=== PATIENT | female | born 1970 | race American Indian/Alaskan Native ===

== ENCOUNTER 2016-05-15 20:45 | Inpatient (IN) | payer OTHER ==
[2016-05-15 21:44] LABS: Basophils % (Auto) 0.6 % (0.0-1.8); Eosinophils % (Auto) 1.7 % (0.0-4.3); Hematocrit 35.4 % (30.3-42.9); Hemoglobin 11.9 gm/dl (10.1-14.3); Mean Corpuscular HGB Conc 34 % (30-34); Mean Corpuscular Hemoglobin 28 pg (28-32); Mean Corpuscular Volume 84 fl (79-97); Platelet Count 276 K/mm3 (140-440); Red Blood Count 4.21 M/mm3 (3.65-5.03); Red Cell Distribution Width 13.3 % (13.2-15.2); White Blood Count 7.1 K/mm3 (4.5-11.0)
[2016-05-15 21:55] LABS: INR 0.97 (0.87-1.13)
[2016-05-15 21:56] LABS: Partial Thromboplastin Time 30.4 Sec. (24.2-36.6)
[2016-05-15 22:00] LABS: Anion Gap 15 mmol/L; BUN/Creatinine Ratio 15.71; Blood Urea Nitrogen 11 mg/dL (7-17); Calcium 8.7 mg/dL (8.4-10.2); Carbon Dioxide 26 mmol/L (22-30); Chloride 96.9 mmol/L (98-107); Glucose 251 mg/dL (65-100); Potassium 4.1 mmol/L (3.6-5.0); Sodium 134 mmol/L (137-145)
--- NOTE | 2016-05-16 00:48 | Emergency Department Report ---
HPI - General Chief Complaint: Headache Time Seen by Provider: 05/16/16 00:29 - HPI HPI: This is a 46-year-old [place] female presents the emergency department with complaint of a right-sided headache as well as some numbness to the right side of her body that started about 3 or 4 PM yesterday, Monday. She denies any slurred speech, vision change, chest pain, shortness of breath. She took some aspirin for her symptoms without much relief. Patient has a history of a CVA last year that left her with some right-sided deficits but that resolved. She also has a history of diabetes, hypertension. Primary care doctor is a Dr. Carlson. No recent travel or sick contacts at home. ED Past Medical Hx - Past Medical History Previous Medical History?: Yes Hx CVA: Yes Hx Diabetes: Yes - Surgical History Past Surgical History?: Yes Additional Surgical History: tubal, hysterectomy - Social History Smoking Status: Never Smoker Substance Use Type: None - Medications Home Medications: Home Medications Medication Instructions Recorded Confirmed Last Taken Type HYDROcodone/APAP 5-325 [[place] 1 each PO Q6HR PRN #14 tablet 07/18/13 Unknown Rx 5-325 mg TAB] Ibuprofen [Motrin] 800 mg PO Q8H PRN #20 tablet 07/18/13 Unknown Rx Cyclobenzaprine HCl [Flexeril 5mg] 5 mg PO DAILY #15 tablet 08/02/13 Unknown Rx Sulfamethoxazole/Trimethoprim 1 each PO BID #6 tablet 08/02/13 Unknown Rx [Bactrim Ds] traMADol [Ultram 50 MG tab] 50 mg PO Q6HR PRN #15 tablet 08/02/13 Unknown Rx ED Review of Systems ROS: Stated complaint: NUMBNESS LF SIDE Other details as noted in HPI Comment: All other systems reviewed and negative Constitutional: denies: chills, fever Eyes: denies: eye pain, eye discharge, vision change ENT: denies: ear pain, throat pain Respiratory: denies: cough, shortness of breath, wheezing Cardiovascular: denies: chest pain, palpitations Gastrointestinal: denies: abdominal pain, nausea, diarrhea Genitourinary: denies: urgency, dysuria, discharge Musculoskeletal: denies: back pain, joint swelling, arthralgia Skin: denies: rash, lesions Neurological: headache, numbness, paresthesias Physical Exam - Physical Exam Vital Signs: Vital Signs 05/15/16 05/15/16 20:58 23:53 Temperature 98.7 F 98.6 F Pulse Rate 103 H 101 H Respiratory 18 18 Rate Blood Pressure 181/108 152/91 O2 Sat by Pulse 100 100 Oximetry Physical Exam: GENERAL: The patient is well-developed well-nourished. HEENT: Normocephalic. Atraumatic. Extraocular motions are intact. Patient has moist mucous membranes. Pupils equal reactive to light bilaterally. Oropharynx is clear. Tongue is midline. There is some right-sided nasolabial fold paresis NECK: Supple. Trachea is midline. CHEST/LUNGS: Clear to auscultation. There is no respiratory distress noted. HEART/CARDIOVASCULAR: Regular. There is no tachycardia. There is no gallop rub or murmur. ABDOMEN: Abdomen is soft, nontender. Patient has normal bowel sounds. There is no abdominal distention. SKIN: Skin is warm and dry. NEURO: The patient is awake, alert, and oriented. The patient is cooperative. Patient has some subjective decreased sensation to the right upper and lower extremity when compared to the left. The patient has normal speech. Cranial nerves II through XII grossly intact. Right-sided nasal labial fold paresis. No pronator drift or dysmetria. MUSCULOSKELETAL: There is no tenderness or deformity. There is no limitation range of motion. There is no evidence of acute injury. Muscle strength 5 out of 5 for upper and lower extremity bilaterally. Cap refill less than 2 seconds. ED Course Vital Signs 05/15/16 05/15/16 20:58 23:53 Temperature 98.7 F 98.6 F Pulse Rate 103 H 101 H Respiratory 18 18 Rate Blood Pressure 181/108 152/91 O2 Sat by Pulse 100 100 Oximetry ED Medical Decision Making - Lab Data Result diagrams: 05/15/16 21:34 05/15/16 21:34 - EKG Data -: EKG Interpreted by Oh EKG shows normal: sinus rhythm, axis, intervals, QRS complexes, ST-T waves Rate: normal - EKG Data When compared to previous EKG there are: previous EKG unavailable Interpretation: normal EKG - Radiology Data Radiology results: report reviewed CT of the head does not show any acute process including no hemorrhage, mass, shift, diffuse edema or skull fracture. - Medical Decision Making 46-year-old female presents the emergency department with complaint of a headache and some right-sided numbness that started about 12 hours ago at this point. She has previous history of CVA. Physical exam the patient has some mild right-sided nasolabial fold paresis, subjective decreased sensation to the right side of the body. She is not in any window for TPA. CT does not show any bleed, shift, mass, ischemic changes or any acute process at this point. Patient's labs are mostly unremarkable. EKG does not show any signs of ST elevation MD or dysrhythmia. However due to the patient's complaints and physical examination, she will need admission and further evaluation including possible MRI and/or carotid ultrasounds. The patient has been accepted for admission by the hospitalist, Dr. Huggins. - Differential Diagnosis CVA, TIA, brain bleed, hypertensive urgency, hyperglycemia, DKA Critical Care Time: No Critical care attestation.: If time is entered above; I have spent that time in minutes in the direct care of this critically ill patient, excluding procedure time. ED Disposition Clinical Impression: Numbness on right side, Hyperglycemia Hypertension Qualifiers: Hypertension type: essential hypertension Qualified Code(s): I10 - Essential ( primary) hypertension Headache Qualifiers: Headache type: unspecified Headache chronicity pattern: acute headache Intractability: not intractable Qualified Code(s): R51 - Headache Disposition: OP ADMITTED IP TO THIS HOSP Is pt being admited?: Yes Does the pt Need Aspirin: Yes Condition: Stable Instructions: Hypertension (ED) Time of Disposition: 02:52
--- NOTE | 2016-05-16 01:48 | Cat Scan Report ---
FINAL REPORT PROCEDURE: CT HEAD/BRAIN WO CON TECHNIQUE: Computerized tomography of the head was performed without contrast material. HISTORY: NUMBNESS RT HAND AND FOOT COMPARISON: No prior studies are available for comparison. FINDINGS: Skull and scalp: Normal. Paranasal sinuses: Normal. Ventricles and subarachnoid spaces: Normal. Cerebrum: No evidence of hemorrhage, acute infarction or mass . Cerebellum and brainstem: No evidence of hemorrhage, acute infarction or mass. Vasculature: Normal. Comments: None. IMPRESSION: 1. Overall negative CT brain without contrast with no CT evidence of intracranial hemorrhage or edema or infarct or shift or distinct acute finding. 2. If there is continued concern for brain abnormality or unexplained symptoms additional diagnostic evaluation advised only if clinically indicated.
[2016-05-16] MEDS ORDERED: TYLENOL PR PRN (02:51)
[2016-05-16] MEDS ORDERED: BABY ASPIRIN PO ONE (02:52)
[2016-05-16] MEDS ORDERED: D50W (25GM) IV PRN (02:58)
[2016-05-16] MEDS ORDERED: NACL 0.9% 1000 ML 1,000 ML IV SCH (03:00)
--- NOTE | 2016-05-16 03:06 | History and Physical Report ---
History of Present Illness Date of examination: 05/16/16 Date of admission: 05/16/2016 Chief complaint: Chief complaint is numbness on the right side of the body, order complaint include facial drooling on the right side and headache History of present illness: History of present illness, patient is a 46-year-old female with past history of CVA, diabetes mellitus presenting with numbness on the right side of the body and patient had facial drooling on the right side with headaches. There is no history of chest pain, no history of shortness of breath, no nausea and vomiting and no history of fever. Patient also denied history of weakness on any of the limbs. There is no history of dysphagia, speech impairment or blurry vision. Past History Past Medical History: diabetes, stroke Past Surgical History: No surgical history Social history: lives with family Family history: no significant family history Medications and Allergies Allergies Allergy/AdvReac Type Severity Reaction Status Date / Time ciprofloxacin [From Cipro] Allergy Shortness Verified 07/18/13 09:26 of Breath ciprofloxacin HCl Allergy Shortness Verified 07/18/13 09:26 [From Cipro] of Breath Home Medications Medication Instructions Recorded Confirmed Last Taken Type HYDROcodone/APAP 5-325 [[place] 1 each PO Q6HR PRN #14 tablet 07/18/13 Unknown Rx 5-325 mg TAB] Ibuprofen [Motrin] 800 mg PO Q8H PRN #20 tablet 07/18/13 Unknown Rx Cyclobenzaprine HCl [Flexeril 5mg] 5 mg PO DAILY #15 tablet 08/02/13 Unknown Rx Sulfamethoxazole/Trimethoprim 1 each PO BID #6 tablet 08/02/13 Unknown Rx [Bactrim Ds] traMADol [Ultram 50 MG tab] 50 mg PO Q6HR PRN #15 tablet 08/02/13 Unknown Rx Review of Systems Constitutional: no weight loss, no weight gain, no fever, no chills, no sweats, no night sweats, no anorexia, no fatigue, no weakness, no malaise, no lethargy, no poor appetite, no daytime sleepiness Eyes: bilateral: other (NO BILATERAL EYE SYMPTOMS) Ears, nose, mouth and throat: no deferred, no ear pain, no ear discharge, no decreased hearing, no nose pain, no nasal congestion, no nasal discharge, no bleeding gums, no dental pain, no mouth pain, no dysphagia, no hoarseness, no sore throat, no swelling in mouth, no post-nasal drip, no headache, no vertigo, no pain front of neck, no neck fullness/pressure Breasts: deferred Cardiovascular: no chest pain, no orthopnea, no palpitations, no rapid/ irregular heart beat, no edema, no syncope, no lightheadedness, no shortness of breath, no paroxysmal nocturnal dyspnea, no claudication, no phlebitis, no high blood pressure, no decreased exercise tolerance Respiratory: no cough, no cough with sputum, no excessive sputum, no hemoptysis , no shortness of breath, no pleurisy, no pain, no pain on inspiration, no sleep apnea, no respiratory infections, no home oxygen Gastrointestinal: no abdominal pain, no nausea, no vomiting, no diarrhea, no constipation, no change in bowel habits, no hematemesis, no coffee ground emesis , no melena, no hematochezia, no loss of appetite, no early satiety, no dyspepsia/bloating, no early satiety Genitourinary Female: no dyspareunia, no flank pain, no menorrhagia, no stress incontinence, no post void dribbling, no incomplete emptying, no urge incontinence, no mixed incontinence, no difficulty voiding, no vaginal discharge , no vaginal odor, no abnormal vaginal bleeding, no genital sores, no vaginal dryness, no mood problems, no prolapse symptoms, no , no difficulties conceiving, no kidney stones Rectal: no pain, no incontinence, no itching, no hemorrhoids, no flatulence Musculoskeletal: no neck stiffness, no neck pain, no shooting arm pain, no arm numbness/tingling, no shooting leg pain, no leg numbness/tingling, no hot joints , no morning stiffness, no muscle weakness, no muscle cramps, no myalgias, no frequent falls, no fractures, no loss of height Integumentary: no rash, no pruritis, no redness, no sores, no wounds, no jaundice, no boils, no blisters, no growths, no bullae, no lesions, no darkening of skin, no depigmentation, no acne, no dryness, no color changes, no unusual bruising, no brittle nails, no striae, no hirsutism, no foot/leg ulcers , no onychomycosis Neurological: no head injury, no transient paralysis, no paralysis, no weakness , no parathesias, no numbness, no tingling, no seizures, no syncope, no tremors , no ataxia, no lack of coordination, no migraines, no convulsions, no aphasia, no change in speech, no change in mentation, no confusion, no memory loss, no changes in smell/taste, no balance difficulties, no gait dysfunction, no motor disturbance, no sensory deficit, no double vision, no loss of vision, no hearing difficulties, no burning pain, no paralysis, no spasticity Psychiatric: no anxiety, no memory loss, no change in sleep habits, no sleep disturbances, no insomnia, no hypersomnia, no change in appetite, no depression , no hopelessness, no anhedonia, no anxiety attacks, no difficulties concentrating Endocrine: no cold intolerance, no heat intolerance, no polyphagia, no excessive thirst, no polydipsia, no polyuria, no nocturia, no excessive sweating , no flushing, no thyroid mass, no palpatations, no high blood sugars, no low blood sugars Hematologic/Lymphatic: no easy bruising, no easy bleeding, no lymphadenopathy, no lymphedema, no thrombophilia, no other Allergic/Immunologic: no persistent infections, no anaphylaxis, no angioedema, no gluten intolerance, no seasonal allergies Exam - Constitutional Vitals: Temp Pulse Resp BP Pulse Ox 98.6 F 101 H 18 152/91 100 05/15/16 23:53 05/15/16 23:53 05/16/16 01:16 05/15/16 23:53 05/16/16 01:16 General appearance: Present: no acute distress - EENT Eyes: Present: PERRL, EOM intact ENT: hearing intact - Neck Neck: Present: supple, normal ROM. Absent: masses or JVD, carotid bruits - Respiratory Respiratory effort: normal - Cardiovascular Rhythm: regular Heart Sounds: Present: S1 & S2. Absent: gallop, systolic murmur, diastolic murmur, rub, click - Extremities Extremities: no ischemia, pulses intact Peripheral Pulses: within normal limits - Abdominal General gastrointestinal: Present: soft, non-tender, non-distended, rigid, normal bowel sounds. Absent: tender, distended Female genitourinary: Present: deferred - Rectal Rectal Exam: deferred - Integumentary Integumentary: Present: clear, warm, dry. Absent: erythema, jaundice, rash, clammy, normal turgor, decreased turgor - Musculoskeletal Musculoskeletal: strength equal bilaterally - Psychiatric Psychiatric: appropriate mood/affect Results - Labs CBC & Chem 7: 05/15/16 21:34 05/15/16 21:34 Labs: Laboratory Last Values WBC 7.1 K/mm3 (4.5-11.0) 05/15/16 21:34 RBC 4.21 M/mm3 (3.65-5.03) 05/15/16 21:34 Hgb 11.9 gm/dl (10.1-14.3) 05/15/16 21:34 Hct 35.4 % (30.3-42.9) 05/15/16 21:34 MCV 84 fl (79-97) 05/15/16 21:34 MCH 28 pg (28-32) 05/15/16 21:34 MCHC 34 % (30-34) 05/15/16 21:34 RDW 13.3 % (13.2-15.2) 05/15/16 21:34 Plt Count 276 K/mm3 (140-440) 05/15/16 21:34 Lymph % (Auto) 40.7 % (13.4-35.0) H 05/15/16 21:34 [place] % (Auto) 8.9 % (0.0-7.3) H 05/15/16 21:34 Eos % (Auto) 1.7 % (0.0-4.3) 05/15/16 21:34 Baso % (Auto) 0.6 % (0.0-1.8) 05/15/16 21:34 Lymph # 2.9 K/mm3 (1.2-5.4) 05/15/16 21:34 [place] # 0.6 K/mm3 (0.0-0.8) 05/15/16 21:34 Eos # 0.1 K/mm3 (0.0-0.4) 05/15/16 21:34 Baso # 0.0 K/mm3 (0.0-0.1) 05/15/16 21:34 Seg Neutrophils % 48.1 % (40.0-70.0) 05/15/16 21:34 Seg Neutrophils # 3.4 K/mm3 (1.8-7.7) 05/15/16 21:34 PT 12.8 Sec. (12.2-14.9) 05/15/16 21:34 INR 0.97 (0.87-1.13) 05/15/16 21:34 APTT 30.4 Sec. (24.2-36.6) 05/15/16 21:34 Thrombin Time 17.8 Sec. (15.1-19.6) 05/15/16 21:34 Sodium 134 mmol/L (137-145) L 05/15/16 21:34 Potassium 4.1 mmol/L (3.6-5.0) 05/15/16 21:34 Chloride 96.9 mmol/L (98-107) L 05/15/16 21:34 Carbon Dioxide 26 mmol/L (22-30) 05/15/16 21:34 Anion Gap 15 mmol/L 05/15/16 21:34 BUN 11 mg/dL (7-17) 05/15/16 21:34 Creatinine 0.7 mg/dL (0.7-1.2) 05/15/16 21:34 Estimated GFR > 60 ml/min 05/15/16 21:34 BUN/Creatinine Ratio 15.71 % 05/15/16 21:34 Glucose 251 mg/dL (65-100) H 05/15/16 21:34 Calcium 8.7 mg/dL (8.4-10.2) 05/15/16 21:34 Troponin T < 0.010 ng/mL (0.00-0.029) 05/15/16 21:34 Assessment and Plan - Patient Problems (1) Headache Current Visit: Yes Status: Acute Qualifiers: Headache type: unspecified Headache chronicity pattern: acute headache Intractability: not intractable Qualified Code(s): R51 - Headache (2) Numbness on right side Current Visit: Yes Status: Acute Plan to address problem: Patient will be admitted to medical surgical doe and will be on IV normal saline at 125 m an hour, patient will have MRI of the brain without contrast this morning will also have bilateral carotid Doppler this morning . Patient will have speech therapy and physical therapy consult evaluation and treatment and will also have neurology consult with Dr. Richmond. DVT prophylaxis will be to sequential compressive device and patient will remain nothing by mouth untill swallowing test is concluded. Patient will have Accu-Chek before meals and daily at bedtime followed by low-dose sliding scale using regular insulin subcutaneous when blood sugar is greater than 150 mg/dL. patient's home medications will be reconciled and applied accordingly
[2016-05-16] MEDS ORDERED: BABY ASPIRIN ONE (03:45)
[2016-05-16] MEDS ORDERED: NACL 0.9% 1000 ML 1,000 ML ONE (03:46)
--- NOTE | 2016-05-16 03:50 | Admit Criteria Form ---
Admission Criteria Documentation: NEUROLOGY GRG Clinical Indications for Admission to Inpatient Care (Place ' X' for any and all applicable criteria): Hospital admission is needed for appropriate care of the patient because of ANY ONE of the following: [ ]I. New-onset or worsening altered mental status remaining after emergency or observation level care (as appropriate) (9)(10)(11) [ ]II. Severe [employer] infections or inflammatory conditions, including ANY ONE of the following(1)(2)(3): [ ]a) Intracranial abscess [ ]b) Spinal abscess or myelitis [ ]c) Tuberculous or other nonbacterial, nonviral [employer] infection(8) [ ]III. Encephalitis(1)(2)(3) [ ]IV. Status epilepticus or repetitive seizures not controlled with emergent treatment [A] (7)(8) [ ]V. Transient alteration in consciousness with high-risk etiology; examples include (12)(13): [ ]a) Cardiovascular source [ ]b) Cataplexy [ ]. Cerebral aneurysm requiring ANY ONE of the following(14): [ ]a) IV antihypertensives or vasoactive agents [ ]b) Sedation and analgesia for suspected leak [ ]c) Need for external ventricular drainage and cerebral perfusion pressure monitoring [ ]d) Emergent evaluation to determine need for surgical clipping or endovascular coiling by interventional radiology. If surgery is required ( Also use Craniotomy, Supratentorial, for Surgery of Bleeding Intracranial Aneurysm (for bleeding aneurysm) or Craniotomy, Supratentorial (for nonbleeding aneurysm) as appropriate. [ ]VII. Altered mental status that is severe or persistent(16) [ ]VIII New-onset severe neurologic findings requiring inpatient care; examples include: [ ]a) Papilledema [ ]b) Cerebral edema [ ]c) Mass effect on imaging [X ]IX. New-onset severe neurologic symptom requiring inpatient care indicated by ANY ONE of the following: [ ]a) Aphasia(15) [ ]b) Weakness (grade 3 or less) [ ]c) Paralysis (eg, hemiplegia) [ ]d) Spasticity(16) [ ]e) Ataxia(17) [ ]f) Amnesia(18) [ ]g) Involuntary movements(19) [ ]h) Vertigo [X ]i) Other severe neurologic symptom not treatable at alternative level of care (eg, observation care) [ ]X. Guillain-[place] syndrome(20) [ ]XI. Myasthenia gravis crisis or inpatient monitoring need as indicated by ANY ONE of the following(21): [ ]a) Inadequate airway protection [ ]b) Respiratory insufficiency requiring intubation or inpatient. monitoring [ ]c) Progressive dysphagia with failure to thrive [ ]d) Intensive treatment (eg, course of plasmapheresis) with inadequate outpatient situation to monitor patients status [ ]XII. Multiple sclerosis or other acute demyelinating disease requiring inpatient care as indicated by ANY ONE of the following (22)(23): [ ]a) Acute severe deterioration requiring inpatient treatment (eg, IV steroids, plasmapheresis, close observation) [ ]b) Acute complication requiring inpatient care (eg, sepsis, severe decubitus, aspiration) [ ]XIII. Intracranial hypertension (eg, pseudotumor cerebri) requiring inpatient care (eg, acute visual loss, inadequate oral intake) (24) [ ]XIV.Parkinson disease requiring inpatient care (Also use Optimal Recovery Care Criteria or General Recovery Criteria as appropriate) indicated by ANY ONE of the following(25): [ ]a) Infection (eg, aspiration pneumonia) not treatable at alternative level of care [ ]b) Volume depletion not responsive to emergency and observation care treatment (as appropriate) [ ]c) Life-threatening agitation or psychotic behavior not treatable on emergency, observation care, or alternative level (eg, residential) basis [ ]d) Severe medication withdrawal effects (eg, freezing, neuroleptic malignant syndrome) not responsive to emergency and observation care treatment (as appropriate) [ ]e) Other severe manifestation not treatable at alternative level of care [ ]XV.Amyotrophic lateral sclerosis with inpatient care needs as indicated by ANY ONE of the following(26): [ ]a) Acute complications requiring inpatient care (Use Optimal Recovery Care Criteria or General Recovery Criteria as appropriate); examples include: [ ]i) Aspiration pneumonia [ ]ii) Sepsis [ ]b) Dehydration or hypovolemia (not responsive to emergency and observation care treatment as appropriate) AND artificial support desired [ ]c) Inadequate airway protection AND artificial support desired [ ]d) Severe ventilatory insufficiency AND artificial support desired [ ]XVI.Severe myopathy, neuropathy, or other neuromuscular disease as indicated by ANY ONE of the following: [ ]a) New-onset severe diffuse weakness (eg, strength 3/5 or less) [ ]b) Severe dysphagia [ ]c) Dyspnea at rest or with minimal exertion (new) [ ]d) Inadequate airway protection [ ]e) Inadequate ventilation as indicated by ANY ONE of the following : [ ]i) Partial pressure of carbon dioxide greater than 44 mm Hg (5.9 kPa) (new) [ ]ii) Reduced peak expiratory flow rate (new) [ ]iii) Vital capacity less than 50% of predicted ( less than 15 mL/kg) [ ]iv) Peak inspiratory force less negative than -30 cm H20 (-2942 Pa) [ ]XVII.Complications of congenital or degenerative disease (eg, infection, seizures, dehydration, injury) not responsive to emergency and observation care treatment (as appropriate ) [C](16)(29)(30) [ ]XVIII.Suspected or confirmed nerve or muscle toxic injury, including ANY ONE of the following: [ ]a) Rhabdomyolysis(31) [ ]b) Botulism(32) [ ]c) Other severe toxin-induced sign or symptom [ ]XIX. Neurologic trauma requiring inpatient treatment (medical) indicated by ANY ONE of the following(33)(34): [ ]a) Vital signs or neurologic signs more frequently than every 4 hours [ ]b) Hyperosmolar therapy [ ]c) Respiratory monitoring [ ]d) Intracranial pressure monitoring and treatment [ ]e) Stabilization and immobilization device placement (eg, braces, body jacket) [ ]f) Intubation & mechanical ventilation for airway protection or therapeutic hyperventilation [ ]g) Other treatment or monitoring needed that requires inpatient level of care [ ]XX.Complications of neurologic devices (eg, ventricular shunt, neurostimulator) requiring ANY ONE of the following(35)(36): [ ]a) IV antibiotics with monitoring while awaiting culture results [ ]b) Monitoring for hydrocephalus [ ]XXI Vasculitis with ANY ONE of the following(4)(5): [ ]a) Altered mental status [ ]b) Psychosis [ ]c) Seizures [ ]XXII. Neurology condition and ALL of the following: [ ]a) Symptom or finding for which emergency and observation care have failed or are not considered appropriate (Use General Criteria: Observation Care as appropriate) [ ]b) Presence of ANY ONE of the following: [ ]i) A General Admission Criteria [ ]ii A Pediatric General Admission Criteria The original [facility] content created by [facility] has been revised. The portions of the content which have been revised are identified through the use of italic text or in bold, and [facility] has neither reviewed nor approved the modified material. All other unmodified content is copyright [facility] Please see references footnoted in the original [facility] edition 2016 Admission Criteria Met: Yes
[2016-05-16] MEDS ORDERED: ATIVAN IV ONE (09:00)
[2016-05-16] MEDS ORDERED: TYLENOL PO PRN (09:00)
--- NOTE | 2016-05-16 10:22 | Magnetic Resonance Report ---
MRI BRAIN WITHOUT CONTRAST INDICATION: Numbness. COMPARISON: Head CT from earlier today. FINDINGS: Noncontrast multiplanar and multisequence MRI of the brain demonstrates normal ventricles and sulci without acute infarct, hemorrhage, mass effect or midline shift. Few small nonspecific white matter FLAIR and T2 weighted hyperintensities measuring up to 3-4 mm in the left frontal lobe, axial series 7, image 24. No abnormal extra-axial masses or fluid collections. Normal major intracranial vascular flow voids. Normal posterior fossa structures with symmetric seventh and eighth nerve complexes. Symmetric, grossly unremarkable eye globes. Mild right maxillary and slight ethmoid sinus mucosal thickening. Clear remainder imaged paranasal sinuses and mastoid air cells. Normal midline structures. Cerebellar tonsils extend approximately 1-2 mm below the foramen magnum, not strictly meeting Chiari 1 malformation criteria. Approximately 2.3 x 1.2 cm nasopharyngeal soft tissues may be directly visualized. CONCLUSION: No acute intracranial MRI abnormality with few incidental findings, as described. Thank you for the opportunity to participate in this patient's care.
--- NOTE | 2016-05-16 11:01 | Consultation ---
History of Present Illness Consult date: 05/16/16 Requesting physician: RITESH LOPEZ Reason for Consult: R facial numbness Chief complaint: r sided numbness/tingling History of present illness: 46 YO F Hx DM2 and prior stroke w/ residual R hemiparesis and hemisensory loss p /w R hemispheric RAMSEY and progressive numbness to the R face and hemibody similar to prior stroke reportedly. Sx lasted several hours and gradually improved. There are no clear aggravating, relieving or temporal factors. Severity was enough to cause her concern for recurrent stroke. Past History Past Medical History: diabetes, stroke Past Surgical History: No surgical history Social history: lives with family. denies: smoking, alcohol abuse, prescription drug abuse, IV drug use Family history: no significant family history Medications and Allergies Allergies Allergy/AdvReac Type Severity Reaction Status Date / Time ciprofloxacin [From Cipro] Allergy Shortness Verified 07/18/13 09:26 of Breath ciprofloxacin HCl Allergy Shortness Verified 07/18/13 09:26 [From Cipro] of Breath Home Medications Medication Instructions Recorded Confirmed Last Taken Type HYDROcodone/APAP 5-325 [[place] 1 each PO Q6HR PRN #14 tablet 07/18/13 Unknown Rx 5-325 mg TAB] Ibuprofen [Motrin] 800 mg PO Q8H PRN #20 tablet 07/18/13 Unknown Rx Cyclobenzaprine HCl [Flexeril 5mg] 5 mg PO DAILY #15 tablet 08/02/13 Unknown Rx Sulfamethoxazole/Trimethoprim 1 each PO BID #6 tablet 08/02/13 Unknown Rx [Bactrim Ds] traMADol [Ultram 50 MG tab] 50 mg PO Q6HR PRN #15 tablet 08/02/13 Unknown Rx Active Meds: Active Medications Acetaminophen (Tylenol) 650 mg TN Q4H PRN PRN Reason: Pain, Mild (1-3) Acetaminophen (Tylenol) 650 mg PO Q6H PRN PRN Reason: Pain, Mild (1-3) Last Admin: 05/16/16 10:01 Dose: 650 mg Dextrose (D50w (25gm)) 50 ml IV PRN PRN PRN Reason: Hypoglycemia Sodium Chloride (Nacl 0.9% 1000 Ml) 1,000 mls @ 125 mls/hr IV DIRECT SUREKHA Influenza Virus Vaccine Quadrival (Fluarix Quad [id number](36 Mos+)) 60 mcg IM .ONCE ONE Stop: 05/16/16 12:01 Insulin Human Regular (Novolin R) 0 units SUB-Q ACHS SUREKHA PRN Reason: Protocol Pneumococcal Polyvalent Vaccine (Pneumovax 23) 0.5 ml IM .ONCE ONE Stop: 05/16/16 12:01 Review of Systems Constitutional: fatigue, weakness Neurological: weakness, parathesias, numbness, tingling, headaches, balance difficulties, gait dysfunction, motor disturbance, sensory deficit Physical Examination - Vital Signs Vital Signs: Vital Signs Temp Pulse Resp BP Pulse Ox 98.7 F 103 H 18 181/108 100 05/15/16 20:58 05/15/16 20:58 05/15/16 20:58 05/15/16 20:58 05/15/16 20:58 - Constitutional General appearance: comfortable - EENT EENT: Present: ATNC, PERRL, mucous membranes moist, hearing intact, vision intact - Respiratory Respiratory: Present: chest non-tender, normal breath sounds, no respiratory distress - Cardiovascular Cardiovascular: Present: regular rate Extremities: Present: no peripheral edema bilatateraly, no clubbing, cyanosis, no inflammation, no ischemia or petechiae - Gastrointestinal Gastrointestinal: Present: normoactive bowel sounds, soft, non-distended - Integumentary Integumentary: Present: normal - Neurologic Cranial nerve examination: PERRL, EOMI, VFF, V1/V2/V3 grossly intact, face symmetric, tongue midline, intact, intact shoulder shrug, intact cough reflex, Intact Vestibulo-ocular r, intact corneal reflex, normal palatal elevation Speech examination: intact Sensorimotor examination: pronator drift (on R), hemiparesis (on R) Motor examination - right side: 4/5: biceps (4+ to 5-/5), triceps, wrist flexion , wrist extension, chemistry technician, hip flexors, knee extensors, dorsiflexion, toe extension (EHL), plantarflexion Motor examination - left side: 5/5: biceps, triceps, wrist flexion, wrist extension, chemistry technician, hip flexors, knee extensors, dorsiflexion, toe extension (EHL) , plantarflexion Detailed sensory examination: light touch (diminished on R), temperature ( diminished on R) Reflex and gait examination: intact Reflexes: 0: ankle, 1+: bicep, knee, 2+: tricep - Musculoskeletal Musculoskeletal: Present: no fluid collection, no pain, normal range of motion - Psychiatric Psychiatric: Present: mood/affect appropriate, cooperative Results - Laboratory Findings CBC and BMP: 05/15/16 21:34 05/15/16 21:34 Assessment and Plan 46 YO F Hx DM2 and prior stroke Tx PFH w/ residual R hemiparesis and hemisensory loss p/w R hemispheric RAMSEY and progressive numbness/tingling to the R hemibody lasting hours similar to prior stroke sx. Neuro exam w/ faint R fine motor weakness and decr sensation ? faintly exacerbated baseline deficit. MRI Brain nonacute. Clinical syn not consistent with TIA/stroke but more likely re- crudescence of prior stroke d/t toxic metabolic or vital sign irregularity. Recommendations: 1. Check serum TSH/Vit B12/Ammonia and correct as necessary 2. Cont Infectious work up/medical management for UTI, PNA, cellulitis, bacteremia, etc. 3. Avoid hyponatremia, hypo/hyper-calcemia, hypo/hyperglycemia, acidosis, hypoxia/hypoxemia, hypercarbia/hypercapnia 4. Avoid institution of any psychoactive medications (e.g. antihistamines, anticholinergics, BZD, hypnotics, opiates) as able unless low doses of low potency antipsychotic needed for behavioral issues complicating medical care 5. Autoregulate to goal BP normotensive 6. Cont home meds-there is no neurologic indication to change 7. We can revisit as needed.
[2016-05-16] MEDS ORDERED: PNEUMOVAX 23 IM ONE (12:00)
[2016-05-16] MEDS ORDERED: FLUARIX QUAD 2016-2017(36 MOS+) IM ONE (12:00)
--- NOTE | 2016-05-16 13:07 | Discharge Summary ---
Providers - Providers Date of Admission: 05/16/16 09:57 Date of discharge: 05/16/16 Attending physician: ISAEL CAMACHO Primary care physician: JENNIE MYERS MD Hospitalization Condition: Fair Disposition: DISCHARGED TO HOME OR SELFCARE - Discharge Diagnoses (1) Headache Status: Acute Qualifiers: Headache type: unspecified Headache chronicity pattern: acute headache Intractability: not intractable Qualified Code(s): R51 - Headache (2) Hypertension Status: Acute Qualifiers: Hypertension type: essential hypertension Qualified Code(s): I10 - Essential (primary) hypertension (3) Numbness on right side Status: Acute (4) TIA (transient ischemic attack) Status: Acute Qualifiers: Transient cerebral ischemia type: T Core Measure Documentation - Palliative Care Palliative Care/ Comfort Measures: Not Applicable Exam - Constitutional Vitals: Temp Pulse Resp BP Pulse Ox 98.2 F 98 H 20 159/95 100 05/16/16 04:50 05/16/16 06:04 05/16/16 04:50 05/16/16 04:50 05/16/16 08:39 Plan Activity: advance as tolerated Diet: low fat, low cholesterol, low salt Additional Instructions: 1.Follow up with PCP in 1 week Follow up with: PRIMARY MD LOUIS [Primary Care Provider] - 3-5 Days
[2016-05-16 16:23] VITALS: BP 137/82
--- NOTE | 2016-05-18 11:27 | Vascular Lab Report ---
CAROTID DUPLEX STUDY: RIGHT PSVEDV CCA PROX: 8717 CCA DIST: 8128 ICA PROX: 6425 ICA MID: 9240 ICA DIST: 8938 ECA: 8514 VERT: 64 26 LEFT PSVEDV CCA PROX:02078 CCA DIST: 9029 ICA PROX: 6724 ICA MID: 8740 ICA DIST: 9844 ECA: 8212 VERT: 57 19 REASON FOR EXAM: Facial droop. COMMENTS ON THE RIGHT: Doppler frequency analysis is consistent with 16 to 49 percent diameter reduction of the internal carotid artery. Minimal amount of plaque is seen. The common carotid artery is patent. The external carotid artery is patent. The vertebral artery has antegrade flow. COMMENTS ON THE LEFT: Doppler frequency analysis is consistent with 16 to 49 percent diameter reduction of the internal carotid artery. Minimal amount of plaque is seen. The common carotid artery is patent. The external carotid artery is patent. The vertebral artery has antegrade flow. IMPRESSION: Less than 50% diameter reduction in the internal carotid arteries bilaterally. Consider repeat carotid artery duplex in 12 months.
== END 2016-05-16 16:10 | disposition home or self-care (01) | DRG 69 ==
LOC: ED 20:45 → 4A 05-16 02:42 → OBSVTOIN 05-16 09:57
PROVIDERS: ADMIT Internal Medicine; ATTEND Internal Medicine
DX: G45.9 Transient cerebral ischemic attack, unspecified (principal); R51 Headache; E11.9 Type 2 diabetes mellitus without complications; Z86.73 Personal history of transient ischemic attack (TIA), and cerebral infarction without residual deficits; Z98.51 Tubal ligation status; Z90.710 Acquired absence of both cervix and uterus; Z88.8 Allergy status to other drugs, medicaments and biological substances
CPT/HCPCS: 36415; 70450; 70551; 80048; 84484; 85025; 85610; 85670; 85730; 90686; 90732; 93005; 93010; 93880; J7030

== ENCOUNTER 2016-08-15 19:58 | Emergency (ER) | payer SELFPAY ==
--- NOTE | 2016-08-16 00:02 | Emergency Department Report ---
ED Lower Extremity HPI - General Chief Complaint: Extremity Injury, Lower Stated Complaint: CAST REMOVAL Time Seen by Provider: 08/15/16 23:32 Source: patient, family Mode of arrival: Ambulatory Limitations: No Limitations - History of Present Illness Initial Comments: Patient here reported that she was sent by research and her orthopedic doctor to have cast removed. She said that she had the cast placed 2 weeks ago and she got it wet for she went today and they replaced it. Patient said that the cast became tight and she called her surgeon at about 3 PM and because they were closing and they told her to come to the emergency room to have cast removed from her left lower extremity and that they told her that she can wear her brace until she can be seen in a couple days for Replacement. Patient says she has plantar rupture to left foot and she was wearing a brace initially but orthopedic doctor thought he would be better to put a cast on to take the pressure off foot. She repaired pain 5 out of 10. She is taking pain medication. Denies any numbness or tingling to extremities. Denies any pain in her calf. MD Complaint: foot injury (cast removal) -: week(s) Injury: Foot: Left (pain from cast) Place: home Severity: moderate Severity scale (0 -10): 5 Improves With: NSAID, immobilization Worsens With: weight bearing, palpation Context: other (left plantar rupture) Associated Symptoms: unable to bear weight Treatments Prior to Arrival: NSAIDS, spinal immobilization (cast/crutches) - Related Data Home Medications Medication Instructions Recorded Confirmed Last Taken Aspirin EC [Aspirin Enteric Coated 325 mg PO QDAY 05/16/16 05/16/16 1 Day Ago TAB] Insulin Glargine [Lantus VIAL] 22 unit SUB-Q QHS 05/16/16 05/16/16 1 Day Ago Insulin Lispro [HumaLOG VIAL] 0 units SQ ACHS PRN 05/16/16 05/16/16 2 Weeks Ago Previous Rx's Medication Instructions Recorded Last Taken Type HYDROcodone/APAP 5-325 [[place] 1 each PO Q6HR PRN #14 tablet 07/18/13 1 Day Ago Rx 5-325 mg TAB] Ibuprofen [Motrin 800 MG tab] 800 mg PO Q8H PRN #20 tablet 07/18/13 1 Day Ago Rx Cyclobenzaprine HCl [Flexeril 5 MG 5 mg PO DAILY #15 tablet 08/02/13 1 Day Ago Rx TAB] Sulfamethoxazole/Trimethoprim 1 each PO BID #6 tablet 08/02/13 1 Day Ago Rx [Bactrim DS TAB] traMADol [Ultram 50 MG tab] 50 mg PO Q6HR PRN #15 tablet 08/02/13 1 Day Ago Rx Allergies Allergy/AdvReac Type Severity Reaction Status Date / Time ciprofloxacin [From Cipro] Allergy Shortness Verified 07/18/13 09:26 of Breath ciprofloxacin HCl Allergy Shortness Verified 07/18/13 09:26 [From Cipro] of Breath ED Review of Systems ROS: Stated complaint: CAST REMOVAL Other details as noted in HPI Comment: All other systems reviewed and negative Constitutional: denies: chills, fever Respiratory: no symptoms reported Cardiovascular: denies: chest pain, palpitations, edema, syncope Gastrointestinal: denies: nausea, vomiting Musculoskeletal: arthralgia. denies: back pain, joint swelling, myalgia Skin: denies: rash Neurological: abnormal gait (left foot.). denies: headache, weakness, numbness , paresthesias, confusion, vertigo ED Past Medical Hx - Past Medical History Previous Medical History?: Yes Hx CVA: Yes Hx Diabetes: Yes - Surgical History Past Surgical History?: Yes Additional Surgical History: tubal, hysterectomy. Plantar rupture - Family History Family history: hypertension - Social History Smoking Status: Never Smoker Substance Use Type: None - Medications Home Medications: Home Medications Medication Instructions Recorded Confirmed Last Taken Type HYDROcodone/APAP 5-325 [[place] 1 each PO Q6HR PRN #14 tablet 07/18/13 05/16/16 1 Day Ago Rx 5-325 mg TAB] Ibuprofen [Motrin 800 MG tab] 800 mg PO Q8H PRN #20 tablet 07/18/13 05/16/16 1 Day Ago Rx Cyclobenzaprine HCl [Flexeril 5 MG 5 mg PO DAILY #15 tablet 08/02/13 05/16/16 1 Day Ago Rx TAB] Sulfamethoxazole/Trimethoprim 1 each PO BID #6 tablet 08/02/13 05/16/16 1 Day Ago Rx [Bactrim DS TAB] traMADol [Ultram 50 MG tab] 50 mg PO Q6HR PRN #15 tablet 08/02/13 05/16/16 1 Day Ago Rx Aspirin EC [Aspirin Enteric Coated 325 mg PO QDAY 05/16/16 05/16/16 1 Day Ago History TAB] Insulin Glargine [Lantus VIAL] 22 unit SUB-Q QHS 05/16/16 05/16/16 1 Day Ago History Insulin Lispro [HumaLOG VIAL] 0 units SQ ACHS PRN 05/16/16 05/16/16 2 Weeks Ago History ED Physical Exam - General Limitations: No Limitations General appearance: alert, in no apparent distress - Head Head exam: Present: atraumatic, normocephalic, normal inspection - Neck Neck exam: Present: normal inspection, full ROM. Absent: tenderness, lymphadenopathy - Respiratory Respiratory exam: Present: normal lung sounds bilaterally. Absent: respiratory distress, chest wall tenderness - Cardiovascular Cardiovascular Exam: Present: regular rate, normal rhythm, normal heart sounds - Expanded Lower Extremity Exam Left Hip exam: Present: normal inspection, full ROM, pelvic stability. Absent: tenderness, swelling, abrasion, laceration, ecchymosis, deformity, crepidus, dislocation, erythema, external rotation, internal rotation, shortening Upper Leg exam: Present: normal inspection, full ROM. Absent: tenderness, swelling, abrasion, laceration, ecchymosis, deformity, crepidus, dislocation, erythema Knee exam: Present: normal inspection, full ROM, full knee extension. Absent: tenderness, swelling, abrasion, laceration, ecchymosis, deformity, crepidus, dislocation, erythema, effusion, pain w/ pronation/supination Lower Leg exam: Present: normal inspection, full ROM. Absent: tenderness, swelling, abrasion, laceration, ecchymosis, deformity, crepidus, dislocation, erythema, palpable cord, Dae's sign Ankle exam: Present: normal inspection, full ROM. Absent: tenderness, swelling , abrasion, laceration, ecchymosis, deformity, crepidus, dislocation, erythema Foot/Toe exam: Present: normal inspection, tenderness (plantar aspect of left foot). Absent: full ROM (left foot), swelling, abrasion, laceration, ecchymosis , deformity, crepidus, dislocation, erythema, amputation, puncture wound, foreign body, calcaneal tenderness, tenderness at base of 5th metatarsal, nail avulsion, subungual hematoma Neuro vascular tendon exam: Present: no vascular compromise, motor deficit ( Limited range of motion to left foot due to plantar rupture), significant pain with passive ROM of distal joint. Absent: pulse deficit, abnormal cap refill, sensory deficit, tendon deficit, extremity cold to touch, pallor, abnormal 2- point discrimination, decreased fine/light touch, foot drop, peroneal nerve deficit Gait: Positive: unable to bear weight - Back Exam Back exam: Present: normal inspection, full ROM. Absent: tenderness - Neurological Exam Neurological exam: Present: alert, oriented X3, abnormal gait (left foot due to plantar rupture), motor sensory deficit (left foot limited range of motion), reflexes normal - Psychiatric Psychiatric exam: Present: normal affect, normal mood - Skin Skin exam: Present: warm, dry, intact, normal color. Absent: rash ED Course Vital Signs 08/15/16 08/15/16 21:21 23:32 Temperature 98 F Pulse Rate 94 H 102 H Respiratory 16 18 Rate Blood Pressure 154/102 Blood Pressure 161/97 [Left] O2 Sat by Pulse 96 97 Oximetry Vital Signs 08/15/16 08/15/16 08/16/16 21:21 23:32 01:26 Temperature 98 F Pulse Rate 94 H 102 H 99 H Respiratory 16 18 18 Rate Blood Pressure 154/102 Blood Pressure 161/97 161/99 [Left] O2 Sat by Pulse 96 97 99 Oximetry - Reevaluation(s) Reevaluation #1: 08/16/16 01:30 Patient stable the procedure note for removal of splinter in - Procedure Description Procedures done: Cast removal: Patient cast removed from left lower extremity. She is neurovascular intact and brace placed the site. had her own brace that was given by orthopedic doctor. Pedal pulses are 2+ bilaterally. Patient has crutches and was told to follow-up with her orthopedic doctor to have cast replace as she was instructed. - Orthopedic Splinting/Casting Injury #1 Side: left Lower Extremity Injury Location: foot Other Orthopedic Equipment: crutches Additional Comments: Patient has foot brace that was placed to left foot until she can be seen by her own orthopedic doctor. ED Lower Extremity MDM - Medical Decision Making ED course: I spoke with Dr. Rivas regarding patient presentation and patient requests. I discussed with him that patient was then by orthopedic doctor to have her cast removed and temporary brace place until she can be seen by orthopedic doctor again. See procedure note for cast removal and splint in detail. Cast was removed successfully without any incident and patient discharged home with her family in stable condition. Critical care attestation.: If time is entered above; I have spent that time in minutes in the direct care of this critically ill patient, excluding procedure time. ED Disposition Clinical Impression: Arthralgia of left foot, Encounter for cast removal Disposition: DC-01 TO HOME OR SELFCARE Is pt being admited?: No Does the pt Need Aspirin: No Condition: Stable Instructions: Arthralgia (ED) Additional Instructions: Please call your orthopedic doctor tomorrow to schedule an appointment to have cast replaced. Please wear foot brace until you can be seen by orthopedic doctor Please do not weight-bear and remember to use crutches. Referrals: Your, ORTHOPEDIC DOCTOR [Other] - 08/17/16 Forms: Work/School Release Form(ED)
[2016-08-16 01:29] VITALS: BP 161/99
== END 2016-08-16 01:45 | disposition home or self-care (01) ==
LOC: ED 19:58
DX: Z46.89 Encounter for fitting and adjustment of other specified devices (principal); M79.672 Pain in left foot; E11.9 Type 2 diabetes mellitus without complications; Z88.1 Allergy status to other antibiotic agents; Z86.73 Personal history of transient ischemic attack (TIA), and cerebral infarction without residual deficits; Z79.82 Long term (current) use of aspirin; Z79.4 Long term (current) use of insulin
CPT/HCPCS: 99283

== ENCOUNTER 2016-08-21 18:35 | Emergency (ER) | payer SELFPAY ==
[2016-08-21 19:08] VITALS: BP 114/81
[2016-08-21 19:52] LABS: Hematocrit 35.7 % (30.3-42.9); Mean Corpuscular HGB Conc 34 % (30-34); Mean Corpuscular Hemoglobin 29 pg (28-32); Mean Corpuscular Volume 85 fl (79-97); Platelet Count 287 K/mm3 (140-440); Red Blood Count 4.18 M/mm3 (3.65-5.03); Red Cell Distribution Width 12.9 % (13.2-15.2)
[2016-08-21 19:54] LABS: Bacteria,Urine 1+ /HPF (Negative); Bilirubin,Urine NEG (Negative); Blood,Urine NEG (Negative); Ketones,Urine NEG (Negative); Leukocyte Esterase,Urine NEG (Negative); Mucus,Urine FEW /HPF; Nitrite,Urine NEG (Negative); Urobilinogen,Urine < 2.0 mg/dL (<2.0)
[2016-08-21 20:02] LABS: Anion Gap 16 mmol/L; BUN/Creatinine Ratio 24.54; Blood Urea Nitrogen 27 mg/dL (7-17); Calcium 8.6 mg/dL (8.4-10.2); Carbon Dioxide 27 mmol/L (22-30); Chloride 93.3 mmol/L (98-107); Glucose 372 mg/dL (65-100); Potassium 4.3 mmol/L (3.6-5.0); Sodium 132 mmol/L (137-145)
--- NOTE | 2016-08-22 10:47 | ED Elopement Review ---
ED Pt Elopement review - Results review Lab results: Laboratory Tests 08/21/16 08/21/16 08/21/16 19:22 19:22 19:38 WBC 6.0 RBC 4.18 Hgb 12.0 Hct 35.7 MCV 85 MCH 29 MCHC 34 RDW 12.9 L Plt Count 287 Sodium 132 L Potassium 4.3 Chloride 93.3 L Carbon Dioxide 27 Anion Gap 16 BUN 27 H Creatinine 1.1 Estimated GFR > 60 BUN/Creatinine Ratio 24.54 Glucose 372 H Calcium 8.6 Troponin T < 0.010 Urine Color Yellow Urine Turbidity Clear Urine pH 6.0 Ur Specific [place] 1.024 Urine Protein 100 mg/dl Urine Glucose (UA) >=500 Urine Ketones Neg Urine Blood Neg Urine Nitrite Neg Urine Bilirubin Neg Urine Urobilinogen < 2.0 Ur Leukocyte Esterase Neg Urine WBC (Auto) 1.0 Urine RBC (Auto) 6.0 U Epithel Cells (Auto) 2.0 Urine Bacteria (Auto) 1+ Urine Mucus Few - Call Back decision Pt Call Back Decision: No action required
== END 2016-08-21 21:30 | disposition left against medical advice (07) ==
LOC: ED 18:35
DX: R42 Dizziness and giddiness (principal); R11.0 Nausea; Z53.21 Procedure and treatment not carried out due to patient leaving prior to being seen by health care provider
CPT/HCPCS: 36415; 80048; 81001; 84484; 85027; 93005; 93010

== ENCOUNTER 2016-11-11 10:51 | Emergency (ER) | payer SELFPAY ==
[2016-11-11 11:22] VITALS: BP 142/99
== END 2016-11-11 11:15 | disposition left against medical advice (07) ==
LOC: ED 10:51
DX: Z53.21 Procedure and treatment not carried out due to patient leaving prior to being seen by health care provider (principal)

== ENCOUNTER 2017-09-24 09:36 | Emergency (ER) | payer SELFPAY ==
[2017-09-24] MEDS ORDERED: NACL 0.9% 1000 ML 1,000 ML ONE (11:05)
[2017-09-24 11:32] LABS: Basophils % (Auto) 0.7 % (0.0-1.8); Eosinophils # (Auto) 0.1 K/mm3 (0.0-0.4); Hematocrit 32.7 % (30.3-42.9); Lymphocytes # (Auto) 1.8 K/mm3 (1.2-5.4); Lymphocytes % (Auto) 27.5 % (13.4-35.0); Mean Corpuscular HGB Conc 34 % (30-34); Mean Corpuscular Hemoglobin 29 pg (28-32); Mean Corpuscular Volume 87 fl (79-97); Monocytes # (Auto) 0.4 K/mm3 (0.0-0.8); Monocytes % (Auto) 5.7 % (0.0-7.3); Platelet Count 340 K/mm3 (140-440); Red Blood Count 3.78 M/mm3 (3.65-5.03); Red Cell Distribution Width 14.1 % (13.2-15.2)
[2017-09-24 11:50] LABS: BUN/Creatinine Ratio 17; Blood Urea Nitrogen 15 mg/dL (7-17); Calcium 8.8 mg/dL (8.4-10.2); Hemolysis Index 2
[2017-09-24] MEDS ORDERED: NACL 0.9% 1000 ML 1,000 ML IV ONE (12:27)
[2017-09-24] MEDS ORDERED: HumuLIN R IV ONE (12:27)
--- NOTE | 2017-09-24 12:27 | Emergency Department Report ---
ED General Adult HPI - General Chief complaint: Hyperglycemia Stated complaint: DKA Time Seen by Provider: 09/24/17 11:41 Source: patient Mode of arrival: Ambulatory Limitations: No Limitations - History of Present Illness Initial comments: This is a 47-year-old female with a history of diabetes. She is concerned she might be in DKA. She found her sugar to be elevated yesterday. She complained of some nausea. She complained of urinary frequency but not dysuria. She has not been vomiting. She states that she has had a nonproductive cough for a month. She has not been recently seen by her physician. She denies fever or chills. -: Gradual, days(s) Associated Symptoms: denies other symptoms, cough, nausea/vomiting (no vomiting) - Related Data Home Medications Medication Instructions Recorded Confirmed Last Taken Aspirin EC [Aspirin Enteric Coated 325 mg PO QDAY 05/16/16 05/16/16 1 Day Ago TAB] ~05/15/16 Insulin Glargine [Lantus VIAL] 22 unit SUB-Q QHS 05/16/16 05/16/16 1 Day Ago ~05/15/16 Insulin Lispro [HumaLOG VIAL] 0 units SQ ACHS PRN 05/16/16 05/16/16 2 Weeks Ago ~05/02/16 Previous Rx's Medication Instructions Recorded Last Taken Type HYDROcodone/APAP 5-325 [[place] 1 each PO Q6HR PRN #14 tablet 07/18/13 1 Day Ago Rx 5-325 mg TAB] ~05/15/16 Ibuprofen [Motrin 800 MG tab] 800 mg PO Q8H PRN #20 tablet 07/18/13 1 Day Ago Rx ~05/15/16 Cyclobenzaprine HCl [Flexeril 5 MG 5 mg PO DAILY #15 tablet 08/02/13 1 Day Ago Rx TAB] ~05/15/16 Sulfamethoxazole/Trimethoprim 1 each PO BID #6 tablet 08/02/13 1 Day Ago Rx [Bactrim DS TAB] ~05/15/16 traMADol [Ultram 50 MG tab] 50 mg PO Q6HR PRN #15 tablet 08/02/13 1 Day Ago Rx ~05/15/16 Cefuroxime [Ceftin] 250 mg PO Q12H #14 tablet 09/24/17 Unknown Rx Allergies Allergy/AdvReac Type Severity Reaction Status Date / Time ciprofloxacin [From Cipro] Allergy Shortness Verified 07/18/13 09:26 of Breath ciprofloxacin HCl Allergy Shortness Verified 07/18/13 09:26 [From Cipro] of Breath ED Review of Systems ROS: Stated complaint: DKA Other details as noted in HPI Constitutional: denies: chills, fever Eyes: denies: eye pain, eye discharge, vision change ENT: denies: ear pain, throat pain Respiratory: cough. denies: shortness of breath, SOB with exertion, wheezing Cardiovascular: denies: chest pain, palpitations Endocrine: no symptoms reported Gastrointestinal: nausea. denies: abdominal pain, vomiting, diarrhea Genitourinary: denies: urgency, dysuria, discharge Musculoskeletal: denies: back pain, joint swelling, arthralgia Skin: denies: rash, lesions Neurological: denies: headache, weakness, paresthesias Psychiatric: denies: anxiety, depression Hematological/Lymphatic: denies: easy bleeding, easy bruising ED Past Medical Hx - Past Medical History Hx Hypertension: Yes Hx CVA: Yes (right-sided) Hx Diabetes: Yes - Surgical History Past Surgical History?: Yes Hx Appendectomy: No Hx Breast Surgery: No Additional Surgical History: tubal, hysterectomy. Plantar rupture - Social History Smoking Status: Never Smoker Substance Use Type: None - Medications Home Medications: Home Medications Medication Instructions Recorded Confirmed Last Taken Type HYDROcodone/APAP 5-325 [[place] 1 each PO Q6HR PRN #14 tablet 07/18/13 05/16/16 1 Day Ago Rx 5-325 mg TAB] ~05/15/16 Ibuprofen [Motrin 800 MG tab] 800 mg PO Q8H PRN #20 tablet 07/18/13 05/16/16 1 Day Ago Rx ~05/15/16 Cyclobenzaprine HCl [Flexeril 5 MG 5 mg PO DAILY #15 tablet 08/02/13 05/16/16 1 Day Ago Rx TAB] ~05/15/16 Sulfamethoxazole/Trimethoprim 1 each PO BID #6 tablet 08/02/13 05/16/16 1 Day Ago Rx [Bactrim DS TAB] ~05/15/16 traMADol [Ultram 50 MG tab] 50 mg PO Q6HR PRN #15 tablet 08/02/13 05/16/16 1 Day Ago Rx ~05/15/16 Aspirin EC [Aspirin Enteric Coated 325 mg PO QDAY 05/16/16 05/16/16 1 Day Ago History TAB] ~05/15/16 Insulin Glargine [Lantus VIAL] 22 unit SUB-Q QHS 05/16/16 05/16/16 1 Day Ago History ~05/15/16 Insulin Lispro [HumaLOG VIAL] 0 units SQ ACHS PRN 05/16/16 05/16/16 2 Weeks Ago History ~05/02/16 Cefuroxime [Ceftin] 250 mg PO Q12H #14 tablet 09/24/17 Unknown Rx ED Physical Exam - General Limitations: No Limitations General appearance: alert, in no apparent distress - Head Head exam: Present: atraumatic, normocephalic - Eye Eye exam: Present: normal appearance, PERRL, EOMI. Absent: scleral icterus - ENT ENT exam: Present: mucous membranes moist - Neck Neck exam: Present: normal inspection. Absent: tenderness, meningismus - Respiratory Respiratory exam: Present: normal lung sounds bilaterally. Absent: respiratory distress - Cardiovascular Cardiovascular Exam: Present: regular rate, normal rhythm. Absent: systolic murmur, diastolic murmur, rubs, gallop - GI/Abdominal GI/Abdominal exam: Present: soft, normal bowel sounds. Absent: distended, tenderness, guarding, rebound, rigid - Extremities Exam Extremities exam: Present: normal inspection - Back Exam Back exam: Present: normal inspection - Neurological Exam Neurological exam: Present: alert, oriented X3, CN II-XII intact. Absent: motor sensory deficit - Psychiatric Psychiatric exam: Present: normal affect, normal mood - Skin Skin exam: Present: warm, dry, intact, normal color. Absent: rash ED Course Vital Signs 09/24/17 09/24/17 09:45 11:21 Temperature 98.8 F Pulse Rate 102 H Respiratory 18 15 Rate Blood Pressure 144/86 O2 Sat by Pulse 100 100 Oximetry - Reevaluation(s) Reevaluation #1: Patient was given IV fluids, insulin, ceftriaxone. She was found to have a possible UTI. She was not in DKA. She was appropriate for outpatient follow- up. A urine culture will be ordered. She will be continued on Ceftin. 09/24/17 13:54 ED Medical Decision Making - Lab Data Result diagrams: 09/24/17 10:45 09/24/17 10:45 Laboratory Results - last 24 hr 09/24/17 09/24/17 09/24/17 09:46 10:45 10:45 WBC 6.4 RBC 3.78 Hgb 11.0 Hct 32.7 MCV 87 MCH 29 MCHC 34 RDW 14.1 Plt Count 340 Lymph % (Auto) 27.5 [place] % (Auto) 5.7 Eos % (Auto) 2.0 Baso % (Auto) 0.7 Lymph # 1.8 [place] # 0.4 Eos # 0.1 Baso # 0.0 Seg Neutrophils % 64.1 Seg Neutrophils # 4.1 VBG pH Sodium 132 L Potassium 4.5 Chloride 95.8 L Carbon Dioxide 26 Anion Gap 15 BUN 15 Creatinine 0.9 Estimated GFR > 60 BUN/Creatinine Ratio 17 Glucose 384 H POC Glucose 421 H Calcium 8.8 09/24/17 10:45 WBC RBC Hgb Hct MCV MCH MCHC RDW Plt Count Lymph % (Auto) [place] % (Auto) Eos % (Auto) Baso % (Auto) Lymph # [place] # Eos # Baso # Seg Neutrophils % Seg Neutrophils # VBG pH 7.348 Sodium Potassium Chloride Carbon Dioxide Anion Gap BUN Creatinine Estimated GFR BUN/Creatinine Ratio Glucose POC Glucose Calcium Critical Care Time: No Critical care attestation.: If time is entered above; I have spent that time in minutes in the direct care of this critically ill patient, excluding procedure time. ED Disposition Clinical Impression: Hyperglycemia due to type 2 diabetes mellitus Qualifiers: Diabetes mellitus long chain beamer insulin use: with long chain beamer use Qualified Code(s): E11.65 - Type 2 diabetes mellitus with hyperglycemia; Z79.4 - ad terminal makeup operator (current ) use of insulin UTI (urinary tract infection) Qualifiers: Urinary tract infection type: site unspecified Hematuria presence: without hematuria Qualified Code(s): N39.0 - Urinary tract infection, site not specified Disposition: DC-01 TO HOME OR SELFCARE Is pt being admited?: No Does the pt Need Aspirin: No Condition: Stable Instructions: Diabetes Mellitus Type 2 in Adults (ED), Urinary Tract Infection in Women (ED) Additional Instructions: Returns symptoms worsen. Use a sliding scale for your blood sugar. If it is not controlled he should return or see her primary care physician as soon as possible. The urine culture test needs to be checked in 2-3 days. Continue oral antibiotic. Return fever chills nausea vomiting or any acute change or problem. Prescriptions: Cefuroxime [Ceftin] 250 mg PO Q12H #14 tablet Referrals: PRIMARY CARE, [Primary Care Provider] - 2-3 Days [facility] [Provider Group] - 3-5 Days Time of Disposition: 13:57
--- NOTE | 2017-09-24 12:56 | XRay Report ---
FINAL REPORT EXAM: XR CHEST 1V AP HISTORY: cough TECHNIQUE: Frontal chest radiograph. PRIORS: None. FINDINGS: The cardiomediastinal silhouette is normal. No focal consolidation. No pleural effusion. No pneumothorax. No acute osseous abnormality. IMPRESSION: No acute cardiopulmonary process.
[2017-09-24 13:26] LABS: Bacteria,Urine 2+ /HPF (Negative); Bilirubin,Urine NEG (Negative); Blood,Urine NEG (Negative); Color,Urine Yellow (Yellow); Mucus,Urine FEW /HPF; Urobilinogen,Urine < 2.0 mg/dL (<2.0)
[2017-09-24 13:36] LABS: Protein,Urine >500 mg/dL (Negative)
[2017-09-24] MEDS ORDERED: ROCEPHIN/NS 1 GM/50 ML 1 GM/50 ML BAG IV ONE (13:51)
[2017-09-24 15:12] VITALS: BP 171/94
== END 2017-09-24 15:18 | disposition home or self-care (01) ==
LOC: ED 09:36
DX: E11.65 Type 2 diabetes mellitus with hyperglycemia (principal); N39.0 Urinary tract infection, site not specified; I10 Essential (primary) hypertension; Z79.4 Long term (current) use of insulin; Z86.73 Personal history of transient ischemic attack (TIA), and cerebral infarction without residual deficits; Z98.51 Tubal ligation status; Z90.710 Acquired absence of both cervix and uterus; Z88.1 Allergy status to other antibiotic agents
CPT/HCPCS: 36415; 71045; 80048; 81001; 82805; 82962; 85025; 96361; 96365; 96375; 99284; J0696; J7030; J1815

== ENCOUNTER 2018-10-23 17:02 | Emergency (ER) | payer SELFPAY ==
--- NOTE | 2018-10-23 17:36 | Event Note ---
ED Screening Note Date of service: 10/23/18 Time: 17:31 ED Screening Note: This is a 48 y.o. F. that presents to the ER with BLE swelling, 2 diabetic ulcers to right plantar foot, and a wound to right great toe nail bed. Patient reports BLE edema for 1 month. She is scheduled to have a echogram this with [place] news content specialist. Reports SOB, cough, and occasional palpitations. This initial assessment/diagnostic orders/clinical plan/treatment(s) is/are subject to change based on patients health status, clinical progression and re- assessment by fellow clinical providers in the ED. Further treatment and workup at subsequent clinical providers discretion. Patient/guardian urged not to elope from the ED as their condition may be serious if not clinically assessed and managed. Initial orders include: Labs and CXR
[2018-10-23 17:55] LABS: Basophils # (Auto) 0.1 K/mm3 (0.0-0.1); Basophils % (Auto) 0.9 % (0.0-1.8); Eosinophils # (Auto) 0.2 K/mm3 (0.0-0.4); Eosinophils % (Auto) 3.5 % (0.0-4.3); Hematocrit 28.6 % (30.3-42.9); Hemoglobin 9.4 gm/dl (10.1-14.3); Lymphocytes # (Auto) 2.2 K/mm3 (1.2-5.4); Lymphocytes % (Auto) 33.6 % (13.4-35.0); Mean Corpuscular HGB Conc 33 % (30-34); Mean Corpuscular Volume 86 fl (79-97); Monocytes # (Auto) 0.6 K/mm3 (0.0-0.8); Monocytes % (Auto) 8.5 % (0.0-7.3); Platelet Count 315 K/mm3 (140-440); Red Blood Count 3.34 M/mm3 (3.65-5.03); Red Cell Distribution Width 13.5 % (13.2-15.2)
[2018-10-23 18:07] LABS: Partial Thromboplastin Time 31.9 Sec. (24.2-36.6)
--- NOTE | 2018-10-23 18:29 | XRay Report ---
CHEST 2 VIEWS INDICATION / CLINICAL INFORMATION: SOB and BLE edema. COMPARISON: 09/24/17 FINDINGS: SUPPORT DEVICES: None. HEART / MEDIASTINUM: No significant abnormality. LUNGS / PLEURA: No significant pulmonary or pleural abnormality. No pneumothorax. ADDITIONAL FINDINGS: No significant additional findings. IMPRESSION: 1. No acute findings. No significant change. Signer Name: Mara Simmons MD Signed: 10/23/2018 6:25 PM Workstation Name: [id number]
[2018-10-23 18:41] LABS: Alanine Aminotransferase 9 units/L (7-56); Albumin 2.4 g/dL (3.9-5); BUN/Creatinine Ratio 15; Blood Urea Nitrogen 20 mg/dL (7-17); Calcium 8.5 mg/dL (8.4-10.2); Hemolysis Index 6
[2018-10-23] MEDS ORDERED: ASPIRIN PO ONE (19:57)
[2018-10-23] MEDS ORDERED: TYLENOL PO ONE (19:58)
[2018-10-23] MEDS ORDERED: IBUPROFEN PO ONE (19:58)
[2018-10-23] MEDS ORDERED: XYLOCAINE 1% MPF 5 mL INFILTRATI ONE (19:58)
[2018-10-23] MEDS ORDERED: LASIX PO ONE (19:58)
[2018-10-23] MEDS ORDERED: KEFLEX PO ONE (19:59)
[2018-10-23] MEDS ORDERED: TRIPLE ANTIBIOTIC TP ONE ×2 (22:59→23:02)
--- NOTE | 2018-10-23 23:13 | Emergency Department Report ---
ED General Adult HPI - General Chief complaint: Wound/Laceration Stated complaint: LEGS SWOLLEN/ULCERS ON R FOOT Time Seen by Provider: 10/23/18 17:31 Source: patient Mode of arrival: Ambulatory Limitations: No Limitations - History of Present Illness Initial comments: Patient is a 48-year-old -[place] female with a history of CHF, [id number] diabetes, and hypertension who presents to the ED with complaint of worsening right foot also pain and bilateral lower extremity swelling and right great toenail pain is swelling and erythematous rash with thick purulent discharge for the last 2 days. Patient states that she ran out of her Lasix 2 days ago and although she has a prescription refill she was not able to grain picker the prescription from the pharmacy. Patient states that the right great toe ingrown toenail is worsening the last 24 hours with purulent discharge. Patient denies fever, chills, nausea, vomiting, traumatic injury, numbness and tingling or weakness of lower extremities, chest pain or shortness of breath. MD Complaint: right foot ulcer pain; right ingrown toenail; bilateral leg swell ing -: Sudden, days(s) (2) Location: right, lower extremity (foot) Radiation: non-radiation, extremity (right plantar foot and right great toe) Severity scale (0 -10): 7 Quality: aching, sharp Consistency: constant Improves with: none Worsens with: none Associated Symptoms: denies other symptoms. denies: confusion, chest pain, cough, diaphoresis, fever/chills, headaches, loss of appetite, malaise, nausea/vomiting, seizure, shortness of breath, syncope Treatments Prior to Arrival: none - Related Data Home Medications Medication Instructions Recorded Confirmed Last Taken Aspirin EC 325 mg PO QDAY 05/16/16 05/16/16 1 Day Ago ~05/15/16 Insulin Glargine [Lantus VIAL] 22 unit SUB-Q QHS 05/16/16 05/16/16 1 Day Ago ~05/15/16 Insulin Lispro [HumaLOG VIAL] 0 units SQ ACHS PRN 05/16/16 05/16/16 2 Weeks Ago ~05/02/16 Previous Rx's Medication Instructions Recorded Last Taken Type HYDROcodone/APAP 5-325 [[place] 1 each PO Q6HR PRN #14 tablet 07/18/13 1 Day Ago Rx 5-325 mg TAB] ~05/15/16 Ibuprofen [Motrin 800 MG tab] 800 mg PO Q8H PRN #20 tablet 07/18/13 1 Day Ago Rx ~05/15/16 Cyclobenzaprine HCl [Flexeril 5 MG 5 mg PO DAILY #15 tablet 08/02/13 1 Day Ago Rx TAB] ~05/15/16 Sulfamethoxazole/Trimethoprim 1 each PO BID #6 tablet 08/02/13 1 Day Ago Rx [Bactrim DS TAB] ~05/15/16 traMADol [Ultram 50 MG tab] 50 mg PO Q6HR PRN #15 tablet 08/02/13 1 Day Ago Rx ~05/15/16 cefUROXime [Ceftin] 250 mg PO Q12H #14 tablet 09/24/17 Unknown Rx ALBUTEROL Inhaler (OR & NICU) 2 puff IH QID PRN #1 inhalation 12/11/17 Unknown Rx [ProAir HFA Inhaler] HYDROcodone/APAP 5-325 [[place] 1 each PO Q4HR PRN #12 tablet 12/11/17 Unknown Rx 5/325] Ibuprofen [Motrin] 600 mg PO Q8H PRN #20 tablet 12/11/17 Unknown Rx Ondansetron [Zofran Odt] 4 mg PO Q8HR PRN #10 tab.rapdis 12/11/17 Unknown Rx predniSONE [Deltasone] 20 mg PO QDAY #5 tab 12/11/17 Unknown Rx Ibuprofen [Motrin] 600 mg PO Q8H PRN #20 tablet 10/23/18 Unknown Rx Sulfamethoxazole/Trimethoprim 1 each PO Q12H #20 tablet 10/23/18 Unknown Rx [Bactrim DS TAB] traMADol [Ultram] 50 mg PO Q6HR PRN #15 tablet 10/23/18 Unknown Rx Allergies Allergy/AdvReac Type Severity Reaction Status Date / Time ciprofloxacin [From Cipro] Allergy Shortness Verified 10/23/18 17:32 of Breath ciprofloxacin HCl Allergy Shortness Verified 10/23/18 17:32 [From Cipro] of Breath ED Review of Systems ROS: Stated complaint: LEGS SWOLLEN/ULCERS ON R FOOT Other details as noted in HPI Constitutional: denies: chills, fever Eyes: denies: eye pain, eye discharge, vision change ENT: denies: ear pain, throat pain Respiratory: denies: cough, shortness of breath, wheezing Cardiovascular: denies: chest pain, palpitations Endocrine: no symptoms reported Gastrointestinal: denies: abdominal pain, nausea, diarrhea Genitourinary: denies: urgency, dysuria, discharge Musculoskeletal: arthralgia (Right foot pain due to ingrown right great toenail; ulcer of right foot), myalgia. denies: back pain, joint swelling Skin: denies: rash, lesions Neurological: denies: headache, weakness, paresthesias Psychiatric: denies: anxiety, depression Hematological/Lymphatic: denies: easy bleeding, easy bruising ED Past Medical Hx - Past Medical History Previous Medical History?: Yes Hx Hypertension: Yes Hx CVA: Yes (right-sided) Hx Diabetes: Yes - Surgical History Past Surgical History?: Yes Hx Appendectomy: No Hx Breast Surgery: No Additional Surgical History: tubal, hysterectomy. Plantar rupture - Social History Smoking Status: Never Smoker Substance Use Type: None - Medications Home Medications: Home Medications Medication Instructions Recorded Confirmed Last Taken Type HYDROcodone/APAP 5-325 [[place] 1 each PO Q6HR PRN #14 tablet 07/18/13 05/16/16 1 Day Ago Rx 5-325 mg TAB] ~05/15/16 Ibuprofen [Motrin 800 MG tab] 800 mg PO Q8H PRN #20 tablet 07/18/13 05/16/16 1 Day Ago Rx ~05/15/16 Cyclobenzaprine HCl [Flexeril 5 MG 5 mg PO DAILY #15 tablet 08/02/13 05/16/16 1 Day Ago Rx TAB] ~05/15/16 Sulfamethoxazole/Trimethoprim 1 each PO BID #6 tablet 08/02/13 05/16/16 1 Day Ago Rx [Bactrim DS TAB] ~05/15/16 traMADol [Ultram 50 MG tab] 50 mg PO Q6HR PRN #15 tablet 08/02/13 05/16/16 1 Day Ago Rx ~05/15/16 Aspirin EC 325 mg PO QDAY 05/16/16 05/16/16 1 Day Ago History ~05/15/16 Insulin Glargine [Lantus VIAL] 22 unit SUB-Q QHS 05/16/16 05/16/16 1 Day Ago History ~05/15/16 Insulin Lispro [HumaLOG VIAL] 0 units SQ ACHS PRN 05/16/16 05/16/16 2 Weeks Ago History ~05/02/16 cefUROXime [Ceftin] 250 mg PO Q12H #14 tablet 09/24/17 Unknown Rx ALBUTEROL Inhaler (OR & NICU) 2 puff IH QID PRN #1 inhalation 12/11/17 Unknown Rx [ProAir HFA Inhaler] HYDROcodone/APAP 5-325 [[place] 1 each PO Q4HR PRN #12 tablet 12/11/17 Unknown Rx 5/325] Ibuprofen [Motrin] 600 mg PO Q8H PRN #20 tablet 12/11/17 Unknown Rx Ondansetron [Zofran Odt] 4 mg PO Q8HR PRN #10 tab.rapdis 12/11/17 Unknown Rx predniSONE [Deltasone] 20 mg PO QDAY #5 tab 12/11/17 Unknown Rx Ibuprofen [Motrin] 600 mg PO Q8H PRN #20 tablet 10/23/18 Unknown Rx Sulfamethoxazole/Trimethoprim 1 each PO Q12H #20 tablet 10/23/18 Unknown Rx [Bactrim DS TAB] traMADol [Ultram] 50 mg PO Q6HR PRN #15 tablet 10/23/18 Unknown Rx ED Physical Exam - General Limitations: No Limitations General appearance: alert, in no apparent distress - Head Head exam: Present: atraumatic, normocephalic, normal inspection - Eye Eye exam: Present: normal appearance, PERRL, EOMI Pupils: Present: normal accommodation - ENT ENT exam: Present: normal exam, normal orophraynx, mucous membranes moist, TM's normal bilaterally, normal external ear exam - Neck Neck exam: Present: normal inspection, full ROM - Respiratory Respiratory exam: Present: normal lung sounds bilaterally. Absent: respiratory distress, wheezes, rales, chest wall tenderness, accessory muscle use, decreased breath sounds - Cardiovascular Cardiovascular Exam: Present: regular rate, normal rhythm, normal heart sounds. Absent: systolic murmur, diastolic murmur, rubs, gallop - GI/Abdominal GI/Abdominal exam: Present: soft, normal bowel sounds. Absent: tenderness, guarding, hyperactive bowel sounds, organomegaly - Rectal Rectal exam: Present: deferred - Extremities Exam Extremities exam: Present: normal inspection, tenderness (Right plantar foot ulcer with tenderness; right great toe swelling and tenderness due to ingrown right great toe), normal capillary refill, pedal edema (1+ bilateral lower leg edema). Absent: calf tenderness - Back Exam Back exam: Present: normal inspection, full ROM. Absent: tenderness, CVA tenderness (R), CVA tenderness (L), muscle spasm, paraspinal tenderness - Neurological Exam Neurological exam: Present: alert, oriented X3, CN II-XII intact, normal gait, reflexes normal - Psychiatric Psychiatric exam: Present: normal affect, normal mood - Skin Skin exam: Present: warm, dry, intact, normal color. Absent: rash ED Course Vital Signs 10/23/18 10/23/18 10/23/18 17:31 20:25 20:26 Temperature 98.8 F Pulse Rate 104 H Respiratory 18 16 16 Rate Blood Pressure 165/89 O2 Sat by Pulse 100 Oximetry - Reevaluation(s) Reevaluation #1: 10/24/18 01:38 This is a 48-year-old female who presented to the ED with the bilateral lower leg edema, severe right plantar foot pain due to ulcerated wound, and severe right great toe pain and swelling with purulent discharge due to an ingrown toenail. In the ED, patient is alert and oriented 3 and is not in any distress but in pain. Patient was treated for pain and also given Lasix 40 mg once, lab test results were reviewed and shows BNP of 704.3, BUN 20, Creatinine 1.3. The rest of the lab test results were actionable. Right great toenail was cleaned thoroughly and the ingrown toenail was removed per protocol after applying local anesthetic on the right great toe. The wound was then cleaned thoroughly and dressed appropriately. Patient was advised to return to the ED immediately if symptoms get worse. Patient was therefore discharged home on pain medications and prophylactic antibiotics and advised to follow-up with her primary care physician in 7-10 days for reevaluation, and consider following up with her signs sales representative as previously scheduled. 10/24/18 01:43 ED Medical Decision Making - Lab Data Result diagrams: 10/23/18 17:43 10/23/18 17:47 - Medical Decision Making This is a 48-year-old female who presented to the ED with the bilateral lower leg edema, severe right plantar foot pain due to ulcerated wound, and severe right great toe pain and swelling with purulent discharge due to an ingrown toenail. In the ED, patient is alert and oriented 3 and is not in any distress but in pain. Patient was treated for pain and also given Lasix 40 mg once, lab test results were reviewed and shows BNP of 704.3, BUN 20, Creatinine 1.3. The rest of the lab test results were actionable. Right great toenail was cleaned thoroughly and the ingrown toenail was removed per protocol after applying local anesthetic on the right great toe. The wound was then cleaned thoroughly and dressed appropriately. Patient was advised to return to the ED immediately if symptoms get worse. Patient was therefore discharged home on pain medications and prophylactic antibiotics and advised to follow-up with her primary care physician in 7-10 days for reevaluation, and consider following up with her signs sales representative as previously scheduled. - Differential Diagnosis Ingrown toenail; Foot ulcer; Bilateral LE edema Critical care attestation.: If time is entered above; I have spent that time in minutes in the direct care of this critically ill patient, excluding procedure time. ED Disposition Clinical Impression: Ingrown nail of great toe of right foot, Ulcer of right foot due to type 2 diabetes mellitus, Swelling of lower extremity Disposition: DC-01 TO HOME OR SELFCARE Is pt being admited?: No Does the pt Need Aspirin: No Condition: Stable Instructions: Diabetes Mellitus Type 2 in Adults (ED), Diabetic Foot Ulcers (ED), Leg Edema (ED) Prescriptions: Sulfamethoxazole/Trimethoprim [Bactrim DS TAB] 1 each PO Q12H #20 tablet Ibuprofen [Motrin] 600 mg PO Q8H PRN #20 tablet PRN Reason: Pain traMADol [Ultram] 50 mg PO Q6HR PRN #15 tablet PRN Reason: Pain Referrals: PRIMARY CARE, [Primary Care Provider] - 3-5 Days Time of Disposition: 23:12 Print Language: [place]
[2018-10-24 02:12] VITALS: BP 156/88
== END 2018-10-23 23:30 | disposition home or self-care (01) ==
LOC: ED 17:02
DX: E11.621 Type 2 diabetes mellitus with foot ulcer (principal); L60.0 Ingrowing nail; M79.89 Other specified soft tissue disorders; I10 Essential (primary) hypertension; Z86.73 Personal history of transient ischemic attack (TIA), and cerebral infarction without residual deficits; Z98.51 Tubal ligation status; Z79.4 Long term (current) use of insulin
CPT/HCPCS: 36415; 71046; 80053; 83880; 84484; 85025; 85610; 85730; A6250

== ENCOUNTER 2020-08-07 12:54 | Emergency (ER) | payer OTHER ==
[2020-08-07 13:00] VITALS: BP 194/96
--- NOTE | 2020-08-07 14:31 | Emergency Department Report ---
ED Lower Extremity HPI - General Chief Complaint: Extremity Injury, Lower Stated Complaint: RT KNEE LT ANKLE INJURY Time Seen by Provider: 08/07/20 14:07 Source: patient Mode of arrival: Ambulatory Limitations: No Limitations - History of Present Illness Initial Comments: Patient is a 50-year-old female presents emergency room with complaints of a fall that occurred yesterday. Patient states that she stepped off the last step and there was uneven part of pavement which she states caused her to trip and fall. She is complaining of right knee pain and left foot pain. She states that she has an abrasion to her right knee. 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 She denies any numbness or weakness. She is able to ambulate. Past medical history of diabetes and hypertension. Allergy to Cipro, lisinopril, NSAIDs. She reports NSAIDs cause itching. - Related Data Home Medications Medication Instructions Recorded Confirmed Last Taken Aspirin EC [Ecotrin] 325 mg PO QDAY 05/16/16 05/16/16 1 Day Ago ~05/15/16 Insulin Glargine [Lantus VIAL] 22 unit SUB-Q QHS 05/16/16 05/16/16 1 Day Ago ~05/15/16 Insulin Lispro [HumaLOG VIAL] 0 units SQ ACHS PRN 05/16/16 05/16/16 2 Weeks Ago ~05/02/16 Previous Rx's Medication Instructions Recorded Last Taken Type HYDROcodone/APAP 5-325 [[place] 1 each PO Q6HR PRN #14 tablet 07/18/13 1 Day Ago Rx 5-325 mg TAB] ~05/15/16 Ibuprofen [Motrin 800 MG tab] 800 mg PO Q8H PRN #20 tablet 07/18/13 1 Day Ago Rx ~05/15/16 Cyclobenzaprine HCl [Flexeril 5 MG 5 mg PO DAILY #15 tablet 08/02/13 1 Day Ago Rx TAB] ~05/15/16 Sulfamethoxazole/Trimethoprim 1 each PO BID #6 tablet 08/02/13 1 Day Ago Rx [Bactrim DS TAB] ~05/15/16 traMADoL [Ultram 50 MG tab] 50 mg PO Q6HR PRN #15 tablet 08/02/13 1 Day Ago Rx ~05/15/16 cefUROXime [Ceftin] 250 mg PO Q12H #14 tablet 09/24/17 Unknown Rx Albuterol Mdi (or & Nicu Only) 2 puff IH QID PRN #1 inhalation 12/11/17 Unknown Rx [ProAir HFA Inhaler] HYDROcodone/APAP 5-325 [[place] 1 each PO Q4HR PRN #12 tablet 12/11/17 Unknown Rx 5/325] Ibuprofen [Motrin] 600 mg PO Q8H PRN #20 tablet 12/11/17 Unknown Rx Ondansetron [Zofran Odt] 4 mg PO Q8HR PRN #10 tab.rapdis 12/11/17 Unknown Rx predniSONE [Deltasone] 20 mg PO QDAY #5 tab 12/11/17 Unknown Rx Ibuprofen [Motrin] 600 mg PO Q8H PRN #20 tablet 10/23/18 Unknown Rx Sulfamethoxazole/Trimethoprim 1 each PO Q12H #20 tablet 10/23/18 Unknown Rx [Bactrim DS TAB] traMADoL [Ultram] 50 mg PO Q6HR PRN #15 tablet 10/23/18 Unknown Rx Acetaminophen/Codeine [Tylenol 1 tab PO Q6H PRN #12 tab 08/07/20 Unknown Rx /Codeine # 3 tab] Allergies Allergy/AdvReac Type Severity Reaction Status Date / Time ciprofloxacin [From Cipro] Allergy Shortness Verified 10/23/18 17:32 of Breath ciprofloxacin HCl Allergy Shortness Verified 10/23/18 17:32 [From Cipro] of Breath lisinopril Allergy Shortness Verified 09/27/19 13:36 of Breath ED Review of Systems ROS: Stated complaint: RT KNEE LT ANKLE INJURY Other details as noted in HPI Comment: All other systems reviewed and negative ED Past Medical Hx - Past Medical History Previous Medical History?: Yes Hx Hypertension: Yes Hx CVA: Yes (right-sided) Hx Diabetes: Yes - Surgical History Hx Appendectomy: No Hx Breast Surgery: No Additional Surgical History: tubal, hysterectomy. Plantar rupture - Social History Smoking Status: Never Smoker Substance Use Type: None - Medications Home Medications: Home Medications Medication Instructions Recorded Confirmed Last Taken Type HYDROcodone/APAP 5-325 [[place] 1 each PO Q6HR PRN #14 tablet 07/18/14 05/16/16 1 Day Ago Rx 5-325 mg TAB] ~05/15/16 Ibuprofen [Motrin 800 MG tab] 800 mg PO Q8H PRN #20 tablet 07/18/13 05/16/16 1 Day Ago Rx ~05/15/16 Cyclobenzaprine HCl [Flexeril 5 MG 5 mg PO DAILY #15 tablet 08/02/13 05/16/16 1 Day Ago Rx TAB] ~05/15/16 Sulfamethoxazole/Trimethoprim 1 each PO BID #6 tablet 08/02/13 05/16/16 1 Day Ago Rx [Bactrim DS TAB] ~05/15/16 traMADoL [Ultram 50 MG tab] 50 mg PO Q6HR PRN #15 tablet 08/02/13 05/16/16 1 Day Ago Rx ~05/15/16 Aspirin EC [Ecotrin] 325 mg PO QDAY 05/16/16 05/16/16 1 Day Ago History ~05/15/16 Insulin Glargine [Lantus VIAL] 22 unit SUB-Q QHS 05/16/16 05/16/16 1 Day Ago History ~05/15/16 Insulin Lispro [HumaLOG VIAL] 0 units SQ ACHS PRN 05/16/16 05/16/16 2 Weeks Ago History ~05/02/16 cefUROXime [Ceftin] 250 mg PO Q12H #14 tablet 09/24/17 Unknown Rx Albuterol Mdi (or & Nicu Only) 2 puff IH QID PRN #1 inhalation 12/11/17 Unknown Rx [ProAir HFA Inhaler] HYDROcodone/APAP 5-325 [[place] 1 each PO Q4HR PRN #12 tablet 12/11/17 Unknown Rx 5/325] Ibuprofen [Motrin] 600 mg PO Q8H PRN #20 tablet 12/11/17 Unknown Rx Ondansetron [Zofran Odt] 4 mg PO Q8HR PRN #10 tab.rapdis 12/11/17 Unknown Rx predniSONE [Deltasone] 20 mg PO QDAY #5 tab 12/11/17 Unknown Rx Ibuprofen [Motrin] 600 mg PO Q8H PRN #20 tablet 10/23/18 Unknown Rx Sulfamethoxazole/Trimethoprim 1 each PO Q12H #20 tablet 10/23/18 Unknown Rx [Bactrim DS TAB] traMADoL [Ultram] 50 mg PO Q6HR PRN #15 tablet 10/23/18 Unknown Rx Acetaminophen/Codeine [Tylenol 1 tab PO Q6H PRN #12 tab 08/07/20 Unknown Rx /Codeine # 3 tab] ED Physical Exam - General Limitations: No Limitations General appearance: alert, in no apparent distress - Head Head exam: Present: atraumatic, normocephalic - Eye Eye exam: Present: normal appearance - ENT ENT exam: Present: mucous membranes moist - Respiratory Respiratory exam: Absent: respiratory distress, accessory muscle use - Back Exam Back exam: Present: other (ttp to the right anterior knee with healing superficial abrasion, no signs of infection, ttp to the left lateral foot, no deformities, FROM of the BLE, neurovascularly intact) - Neurological Exam Neurological exam: Present: alert, oriented X3 - Psychiatric Psychiatric exam: Present: normal affect, normal mood - Skin Skin exam: Present: warm, dry ED Course Vital Signs 08/07/20 12:59 Temperature 98.2 F Pulse Rate 104 H Respiratory 18 Rate Blood Pressure 194/96 [Right] O2 Sat by Pulse 100 Oximetry ED Lower Extremity MDM - Radiology Data Radiology results: report reviewed Ordering Physician: AGUSTÍN MAHONEY Date of Service: 08/07/20 Procedure(s): XR knee 3V RT Accession Number(s): [id number] cc: AGUSTÍN MAHONEY Fluoro Time In Minutes: RIGHT KNEE 3 VIEWS INDICATION: fall, right knee pain. COMPARISON: No relevant prior imaging study available. FINDINGS: No acute, displaced fracture or dislocation is seen. However, there appears to be a joint effusion. There is mild joint space narrowing at the medial tibiofemoral compartment. There is a 4.5 cm chondroid lesion in the distal right femoral metadiaphysis. IMPRESSION: 1. Joint effusion. No fracture is seen. 2. 4.5 cm chondroid lesion in the distal left femur is most likely a low-grade cartilaginous lesion such as enchondroma. Given its size, radiographic follow-up is recommended every 6-12 months to confirm long-term stability. Comparison with priors, if available, would be useful. Signer Name: Antonino Molina MD Signed: 08/07/2020 2:52 PM Workstation Name: [id number] Transcribed By: TOMER Dictated By: Antonino Molina MD Electronically Authenticated By: Antonino Molina MD Signed Date/Time: 08/07/201451 DD/ 50 TD/TT: Ordering Physician: AGUSTÍN MAHONEY Date of Service: 08/07/20 Procedure(s): XR foot 3+V LT Accession Number(s): [id number] cc: AGUSTÍN MAHONEY Fluoro Time In Minutes: XR foot 3+V LT INDICATION / CLINICAL INFORMATION: fall, left foot pain. COMPARISON: None available. FINDINGS: BONES/JOINT(S): No acute fracture or subluxation. No significant degenerative changes. SOFT TISSUES: No significant abnormality. ADDITIONAL FINDINGS: None. Signer Name: Vikas Patel MD Signed: 08/07/2020 3:11 PM Workstation Name: [email or web address] Transcribed By: J LUIS Dictated By: Vikas Patel MD Electronically Authenticated By: Vikas Patel MD Signed Date/Time: 08/07/201510 DD/ 09 TD/TT: Print - Medical Decision Making Patient is a 50-year-old female presents emergency room with complaints of a fall that occurred yesterday. Patient states that she stepped off the last step and there was uneven part of pavement which she states caused her to trip and fall. She is complaining of right knee pain and left foot pain. She states that she has an abrasion to her right knee. 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 She denies any numbness or weakness. She is able to ambulate. Past medical history of diabetes and hypertension. Allergy to Cipro, lisinopril, NSAIDs. She reports NSAIDs cause itching. On exam:ttp to the right anterior knee with healing superficial abrasion, no signs of infection, ttp to the left lateral foot, no deformities, FROM of the BLE, neurovascularly intact. X-ray right knee: 1. Joint effusion. No fracture is seen. 2. 4.5 cm chondroid lesion in the distal left femur is most likely a low-grade cartilaginous lesion such as enchondroma. Given its size, radiographic follow-up is recommended every 6-12 months to confirm long- term stability. Comparison with priors, if available, would be useful. X-ray left foot: BONES/JOINT(S): No acute fracture or subluxation. No significant degenerative changes. SOFT TISSUES: No significant abnormality. ADDITIONAL FINDINGS: None. Discussed all results with patient and patient was given her x-ray report. Patient placed in knee immobilizer and given crutches by fountain attendant and remain neurovascularly intact. Discussed the importance of orthopedic follow-up. Patient given prescription for medication. Advised patient Please take medication as prescribed as needed. Do not drive or operate machinery while taking medication. Follow-up with orthopedic doctor. Return to emergency room for new or worsening symptoms. Critical care attestation.: If time is entered above; I have spent that time in minutes in the direct care of this critically ill patient, excluding procedure time. ED Disposition Clinical Impression: Left foot pain, Knee effusion, right, Abrasion, right knee, initial encounter, Lesion of femur Fall Qualifiers: Encounter type: initial encounter Qualified Code(s): W19.XXXA - Unspecified fall, initial encounter Right knee pain Qualifiers: Chronicity: acute Qualified Code(s): M25.561 - Pain in right knee Disposition: TO HOME OR SELFCARE Is pt being admited?: No Does the pt Need Aspirin: No Condition: Stable Instructions: Knee Effusion, Qdrt-[id number], Foot Sprain, Knee Sprain, Adult Additional Instructions: Please take medication as prescribed as needed. Do not drive or operate machinery while taking medication. Follow-up with orthopedic doctor. Return to emergency room for new or worsening symptoms. Prescriptions: Acetaminophen/Codeine [Tylenol /Codeine # 3 tab] 1 tab PO Q6H PRN #12 tab PRN Reason: Pain , Severe (7-10) Referrals: JENNIE MYERS MD [Primary Care Provider] - 2-3 Days [facility] [Provider Group] - 2-3 Days BEN NICHOLSON MD [Staff Physician] - 2-3 Days Time of Disposition: 15:19 Print Language: [place]
--- NOTE | 2020-08-07 14:57 | XRay Report ---
RIGHT KNEE 3 VIEWS INDICATION: fall, right knee pain. COMPARISON: No relevant prior imaging study available. FINDINGS: No acute, displaced fracture or dislocation is seen. However, there appears to be a joint effusion. T here is mild joint space narrowing at the medial tibiofemoral compartment. There is a 4.5 cm chondroid lesion in the distal right femoral metadiaphysis. IMPRESSION: 1. Joint effusion. No fracture is seen. 2. 4.5 cm chondroid lesion in the distal left femur is most likely a low-grade cartilaginous lesion s uch as enchondroma. Given its size, radiographic follow-up is recommended every 6-12 months to confir m long-term stability. Comparison with priors, if available, would be useful. Signer Name: Antonino Molina MD Signed: 08/07/2020 2:52 PM Workstation Name: [id number]
--- NOTE | 2020-08-07 15:15 | XRay Report ---
XR foot 3+V LT INDICATION / CLINICAL INFORMATION: fall, left foot pain. COMPARISON: None available. FINDINGS: BONES/JOINT(S): No acute fracture or subluxation. No significant degenerative changes. SOFT TISSUES: No significant abnormality. ADDITIONAL FINDINGS: None. Signer Name: Vikas Patel MD Signed: 08/07/2020 3:11 PM Workstation Name: [email or web address]
== END 2020-08-07 15:25 | disposition home or self-care (01) ==
LOC: ED 12:54
DX: S80.211A Abrasion, right knee, initial encounter (principal); M89.9 Disorder of bone, unspecified; M25.461 Effusion, right knee; M79.672 Pain in left foot; I10 Essential (primary) hypertension; E11.9 Type 2 diabetes mellitus without complications; Z79.899 Other long term (current) drug therapy; Z88.8 Allergy status to other drugs, medicaments and biological substances; Z86.73 Personal history of transient ischemic attack (TIA), and cerebral infarction without residual deficits; Z90.710 Acquired absence of both cervix and uterus; Z98.890 Other specified postprocedural states; Z98.51 Tubal ligation status; W10.8XXA Fall (on) (from) other stairs and steps, initial encounter; Y93.89 Activity, other specified; Y92.89 Other specified places as the place of occurrence of the external cause; Y99.8 Other external cause status

== ENCOUNTER 2020-12-23 08:35 | Emergency (ER) | payer OTHER ==
--- NOTE | 2020-12-23 09:54 | XRay Report ---
RIGHT ANKLE 3 VIEWS INDICATION: pain s/p injury. COMPARISON: None. IMPRESSION: There is diffuse soft tissue swelling or edema. No acute osseous injury or joint pathol ogy is appreciated. RIGHT FOOT 3 VIEWS INDICATION: pain s/p injury. COMPARISON: None. IMPRESSION: Minimally displaced fracture is identified through the mid shaft of the second metatarsa l. No calcified callus is identified consistent with an acute injury. The remaining bony structures a re intact. No significant joint pathology. Moderate plantar spur is noted. There is diffuse soft tis camilla swelling. Signer Name: Tomas Segovia Jr, MD Signed: 12/23/2020 9:49 AM Workstation Name: [id number]
--- NOTE | 2020-12-23 12:33 | Emergency Department Report ---
ED Lower Extremity HPI - General Chief Complaint: Extremity Injury, Lower Stated Complaint: RT FOOT POSS FRACTURE Time Seen by Provider: 12/23/20 08:50 Source: patient Mode of arrival: Wheelchair Limitations: No Limitations - History of Present Illness Initial Comments: This is a 50-year-old female nontoxic, well nourished in appearance, no acute signs of distress presents to the ED with c/o of right foot and ankle pain days. Patient stated that she injured it while walking. Patient denies any other injuries or trauma. Patient denies any numbness, tingling, fever, chills, nausea, vomiting, chest pain, shortness of breath, headache, stiff neck. Patient denies any joint swelling or joint redness. Patient denies decreased range of motion. Patient stated has decreased gait due to pain. Patient stated allergies to ciprofloxacin, lisinopril and ibuprofen. MD Complaint: ankle injury, foot injury -: days(s) Injury: Ankle: Right, Foot: Right Severity: mild Severity scale (0 -10): 8 Improves With: immobilization Worsens With: weight bearing, movement, palpation Associated Symptoms: swelling, able to partially bear weight. denies: snap/pop sensation, numbness, tingling, unable to bear weight - Related Data Home Medications Medication Instructions Recorded Confirmed Last Taken Aspirin EC [Ecotrin] 325 mg PO QDAY 05/16/16 05/16/16 1 Day Ago ~05/15/16 Insulin Glargine [Lantus VIAL] 22 unit SUB-Q QHS 05/16/16 05/16/16 1 Day Ago ~05/15/16 Insulin Lispro [HumaLOG VIAL] 0 units SQ ACHS PRN 05/16/16 05/16/16 2 Weeks Ago ~05/02/16 Previous Rx's Medication Instructions Recorded Last Taken Type HYDROcodone/APAP 5-325 [Corydon 1 each PO Q6HR PRN #14 tablet 07/18/13 1 Day Ago Rx 5-325 mg TAB] ~05/15/16 Ibuprofen [Motrin 800 MG tab] 800 mg PO Q8H PRN #20 tablet 07/18/13 1 Day Ago Rx ~05/15/16 Cyclobenzaprine HCl [Flexeril 5 MG 5 mg PO DAILY #15 tablet 08/02/13 1 Day Ago Rx TAB] ~05/15/16 Sulfamethoxazole/Trimethoprim 1 each PO BID #6 tablet 08/02/13 1 Day Ago Rx [Bactrim DS TAB] ~05/15/16 traMADoL [Ultram 50 MG tab] 50 mg PO Q6HR PRN #15 tablet 08/02/13 1 Day Ago Rx ~05/15/16 cefUROXime [Ceftin] 250 mg PO Q12H #14 tablet 09/24/17 Unknown Rx Albuterol Mdi (or & Nicu Only) 2 puff IH QID PRN #1 inhalation 12/11/17 Unknown Rx [ProAir HFA Inhaler] HYDROcodone/APAP 5-325 [[place] 1 each PO Q4HR PRN #12 tablet 12/11/17 Unknown Rx 5/325] Ibuprofen [Motrin] 600 mg PO Q8H PRN #20 tablet 12/11/17 Unknown Rx Ondansetron [Zofran Odt] 4 mg PO Q8HR PRN #10 tab.rapdis 12/11/17 Unknown Rx predniSONE [Deltasone] 20 mg PO QDAY #5 tab 12/11/17 Unknown Rx Ibuprofen [Motrin] 600 mg PO Q8H PRN #20 tablet 10/23/18 Unknown Rx Sulfamethoxazole/Trimethoprim 1 each PO Q12H #20 tablet 10/23/18 Unknown Rx [Bactrim DS TAB] traMADoL [Ultram] 50 mg PO Q6HR PRN #15 tablet 10/23/18 Unknown Rx Acetaminophen/Codeine [Tylenol 1 tab PO Q6H PRN #12 tab 08/07/20 Unknown Rx /Codeine # 3 tab] Acetaminophen [Acetaminophen 8 650 mg PO Q8H PRN #12 tablet.er 12/23/20 Unknown Rx Hour] Allergies Allergy/AdvReac Type Severity Reaction Status Date / Time ciprofloxacin [From Cipro] Allergy Shortness Verified 12/23/20 08:41 of Breath ciprofloxacin HCl Allergy Shortness Verified 12/23/20 08:41 [From Cipro] of Breath lisinopril Allergy Shortness Verified 12/23/20 08:41 of Breath ibuprofen AdvReac Angioedema Verified 12/23/20 08:41 ED Review of Systems ROS: Stated complaint: RT FOOT POSS FRACTURE Other details as noted in HPI Comment: All other systems reviewed and negative Constitutional: denies: chills, fever Eyes: denies: eye pain, eye discharge, vision change ENT: denies: ear pain, throat pain Respiratory: denies: cough, shortness of breath, wheezing Cardiovascular: denies: chest pain, palpitations Endocrine: no symptoms reported Gastrointestinal: denies: abdominal pain, nausea, diarrhea Genitourinary: denies: urgency, dysuria, discharge Musculoskeletal: denies: back pain, joint swelling, arthralgia Skin: denies: rash, lesions Neurological: denies: headache, weakness, paresthesias Psychiatric: denies: anxiety, depression Hematological/Lymphatic: denies: easy bleeding, easy bruising ED Past Medical Hx - Past Medical History Hx Hypertension: Yes Hx CVA: Yes (right-sided) Hx Diabetes: Yes - Surgical History Hx Appendectomy: No Hx Breast Surgery: No Additional Surgical History: tubal, hysterectomy. Plantar rupture - Social History Smoking Status: Never Smoker Substance Use Type: None - Medications Home Medications: Home Medications Medication Instructions Recorded Confirmed Last Taken Type HYDROcodone/APAP 5-325 [Corydon 1 each PO Q6HR PRN #14 tablet 07/18/13 05/16/16 1 Day Ago Rx 5-325 mg TAB] ~05/15/16 Ibuprofen [Motrin 800 MG tab] 800 mg PO Q8H PRN #20 tablet 07/18/13 05/16/16 1 Day Ago Rx ~05/15/16 Cyclobenzaprine HCl [Flexeril 5 MG 5 mg PO DAILY #15 tablet 08/02/13 05/16/16 1 Day Ago Rx TAB] ~05/15/16 Sulfamethoxazole/Trimethoprim 1 each PO BID #6 tablet 08/02/13 05/16/16 1 Day Ago Rx [Bactrim DS TAB] ~05/15/16 traMADoL [Ultram 50 MG tab] 50 mg PO Q6HR PRN #15 tablet 08/02/13 05/16/16 1 Day Ago Rx ~05/15/16 Aspirin EC [Ecotrin] 325 mg PO QDAY 05/16/16 05/16/16 1 Day Ago History ~05/15/16 Insulin Glargine [Lantus VIAL] 22 unit SUB-Q QHS 05/16/16 05/16/16 1 Day Ago History ~05/15/16 Insulin Lispro [HumaLOG VIAL] 0 units SQ ACHS PRN 05/16/16 05/16/16 2 Weeks Ago History ~05/02/16 cefUROXime [Ceftin] 250 mg PO Q12H #14 tablet 09/24/17 Unknown Rx Albuterol Mdi (or & Nicu Only) 2 puff IH QID PRN #1 inhalation 12/11/17 Unknown Rx [ProAir HFA Inhaler] HYDROcodone/APAP 5-325 [[place] 1 each PO Q4HR PRN #12 tablet 12/11/17 Unknown Rx 5/325] Ibuprofen [Motrin] 600 mg PO Q8H PRN #20 tablet 12/11/17 Unknown Rx Ondansetron [Zofran Odt] 4 mg PO Q8HR PRN #10 tab.rapdis 12/11/17 Unknown Rx predniSONE [Deltasone] 20 mg PO QDAY #5 tab 12/11/17 Unknown Rx Ibuprofen [Motrin] 600 mg PO Q8H PRN #20 tablet 10/23/18 Unknown Rx Sulfamethoxazole/Trimethoprim 1 each PO Q12H #20 tablet 10/23/18 Unknown Rx [Bactrim DS TAB] traMADoL [Ultram] 50 mg PO Q6HR PRN #15 tablet 10/23/18 Unknown Rx Acetaminophen/Codeine [Tylenol 1 tab PO Q6H PRN #12 tab 08/07/20 Unknown Rx /Codeine # 3 tab] Acetaminophen [Acetaminophen 8 650 mg PO Q8H PRN #12 tablet.er 12/23/20 Unknown Rx Hour] ED Physical Exam - General Limitations: No Limitations General appearance: alert, in no apparent distress - Head Head exam: Present: atraumatic, normocephalic - Eye Eye exam: Present: normal appearance - Neck Neck exam: Present: normal inspection, full ROM. Absent: lymphadenopathy - Respiratory Respiratory exam: Absent: respiratory distress - Cardiovascular Cardiovascular Exam: Present: regular rate - Extremities Exam Extremities exam: Present: full ROM, tenderness, normal capillary refill. Absent: joint swelling, calf tenderness - Expanded Lower Extremity Exam Right Hip exam: Present: normal inspection, full ROM. Absent: tenderness, swelling Upper Leg exam: Present: normal inspection, full ROM. Absent: tenderness, swelling Knee exam: Present: normal inspection, full ROM. Absent: tenderness, swelling Lower Leg exam: Present: normal inspection, full ROM. Absent: tenderness, swelling, abrasion, laceration, ecchymosis, deformity, crepidus, dislocation, erythema, palpable cord, Dae's sign Ankle exam: Present: full ROM, tenderness, swelling, ecchymosis. Absent: abrasion, laceration, deformity, crepidus, dislocation, erythema, anterior draw sign Foot/Toe exam: Present: full ROM, tenderness, swelling, ecchymosis. Absent: abrasion, laceration, deformity, crepidus, dislocation, erythema, amputation, puncture wound, foreign body, calcaneal tenderness, tenderness at base of 5th metatarsal, nail avulsion, subungual hematoma Neuro vascular tendon exam: Present: no vascular compromise Gait: Positive: observed and limited by pain 1 - Pain here - Back Exam Back exam: Present: normal inspection, full ROM. Absent: tenderness, CVA tenderness (R), CVA tenderness (L), muscle spasm, paraspinal tenderness, vertebral tenderness, rash noted - Neurological Exam Neurological exam: Present: alert, oriented X3 - Psychiatric Psychiatric exam: Present: normal affect, normal mood - Skin Skin exam: Present: warm, dry, intact, normal color. Absent: rash - Other Other exam information: Negative Cuello test to the left lower extremity ED Course Vital Signs 12/23/20 08:43 Temperature 98.9 F Pulse Rate 98 H Respiratory 18 Rate Blood Pressure 205/112 [Left] O2 Sat by Pulse 100 Oximetry - Reevaluation(s) Reevaluation #1: 12/23/20 12:32 Patient is speaking in full sentences with no signs of distress noted. ED Lower Extremity MDM - Radiology Data [facility] [address] [place] [address] XRay Report Signed Patient: SÁNCHEZ CARABALLO MR#: [id number] : 1970 Acct:[id number] Age/Sex: 50 / F ADM Date: 12/23/20 Loc: ED Attending Dr: Ordering Physician: JUSTO ARTHUR NP Date of Service: 12/23/20 Procedure(s): XR ankle 3+V RT Accession Number(s): [id number] cc: JUSTO ARTHUR NP Fluoro Time In Minutes: RIGHT ANKLE 3 VIEWS INDICATION: pain s/p injury. COMPARISON: None. IMPRESSION: There is diffuse soft tissue swelling or edema. No acute osseous injury or joint pathology is appreciated. RIGHT FOOT 3 VIEWS INDICATION: pain s/p injury. COMPARISON: None. IMPRESSION: Minimally displaced fracture is identified through the mid shaft of the second metatarsal. No calcified callus is identified consistent with an acute injury. The remaining bony structures are intact. No significant joint pathology. Moderate plantar spur is noted. There is diffuse soft tissue swelling. Signer Name: Tomas Segovia Jr, MD Signed: 12/23/2020 9:49 AM Workstation Name: [id number] Transcribed By: TTR Dictated By: TOMAS SEGOVIA JR, MD Electronically Authenticated By: TOMAS SEGOVIA JR, MD Signed Date/Time: 12/23/20948 DD/ 7 TD/TT: [address] [address] XRay Report Signed Patient: SÁNCHEZ CARABALLO MR#: [id number] : 1970 Acct:[id number] Age/Sex: 50 / F ADM Date: 12/23/20 Loc: ED Attending Dr: Ordering Physician: JUSTO ARTHUR NP Date of Service: 12/23/20 Procedure(s): XR foot 3+V RT Accession Number(s): [id number] cc: JUSTO ARTHUR NP Fluoro Time In Minutes: RIGHT ANKLE 3 VIEWS INDICATION: pain s/p injury. COMPARISON: None. IMPRESSION: There is diffuse soft tissue swelling or edema. No acute osseous injury or joint pathology is appreciated. RIGHT FOOT 3 VIEWS INDICATION: pain s/p injury. COMPARISON: None. IMPRESSION: Minimally displaced fracture is identified through the mid shaft of the second metatarsal. No calcified callus is identified consistent with an acute injury. The remaining bony structures are intact. No significant joint pathology. Moderate plantar spur is noted. There is diffuse soft tissue swelling. Signer Name: Tomas Segovia Jr, MD Signed: 1 02/23/2020 9:49 AM Workstation Name: [id number] Transcribed By: TTR Dictated By: TOMAS SEGOVIA JR, MD Electronically Authenticated By: TOMAS SEGOVIA JR, MD Signed Date/Time: 12/23/20948 DD/ 7 TD/TT: - Medical Decision Making This is a 50-year-old female that presents with right foot fracture. Patient is stable and was examined by me. I referred patient to an orthopedic doctor for further evaluation for possible MRI. X-ray has been obtained and dictated by the radiologist. Patient is notified of the x-ray report with noted by the patient. Patient received a posterior short leg splint and crutches. Educated by RN how to use crutches. Post splint assessment: neurovasular intact; normal cap refill <2 second; normal sensation; denies decreaed sensation; normal ROM of digits. Patient was instructed to RICE therapy. Patient received Tylenol for pain. Patient is discharged with Tylenol. Patient does have hypertension and stated takes medication and sees PCP for. According to ACEP: (1) in ED patients with asymptomatic markedly elevated blood pressure, routine screening for acute target organ injury (eg, serum creatinine, urinalysis, ECG) is not required. (1) In patients with asymptomatic markedly elevated blood pressure, routine ED medical intervention is not required. At time of discharge, the patient does not seem toxic or ill in appearance. No acute signs of distress noted. Patient agrees to discharge treatment plan of care. No further questions noted by the patient. Critical care attestation.: If time is entered above; I have spent that time in minutes in the direct care of this critically ill patient, excluding procedure time. ED Disposition Clinical Impression: Foot fracture, left Qualifiers: Encounter type: initial encounter Fracture type: closed Qualified Code(s): S92.902A - Unspecified fracture of left foot, initial encounter for closed fra cture Disposition: HOME / SELF CARE / HOMELESS Is pt being admited?: No Does the pt Need Aspirin: No Condition: Stable Instructions: Crutch Use, Adult, [id number], RICE Therapy for Routine Care of Injuries, [id number], Cast or Splint Care, Adult, [id number] Additional Instructions: Follow-up with a orthopedic doctor in 3-5 days or if symptoms worsen and continue return to emergency room as soon as possible. No physical activity that extremity until cleared by orthopedic doctor Prescriptions: Acetaminophen [Acetaminophen 8 Hour] 650 mg PO Q8H PRN #12 tablet.er PRN Reason: Pain , Severe (7-10) Referrals: BEN NICHOLSON MD [Staff Physician] - 3-5 Days PRIMARY CAREMD [Referring] - 3-5 Days Forms: Work/School Release Form(ED) Time of Disposition: 12:37
[2020-12-23 14:22] VITALS: BP 201/111
== END 2020-12-23 14:19 | disposition home or self-care (01) ==
LOC: ED 08:35
DX: S92.901A Unspecified fracture of right foot, initial encounter for closed fracture (principal); I10 Essential (primary) hypertension; E11.8 Type 2 diabetes mellitus with unspecified complications; Z86.73 Personal history of transient ischemic attack (TIA), and cerebral infarction without residual deficits; Z90.89 Acquired absence of other organs; Z88.1 Allergy status to other antibiotic agents; Z88.8 Allergy status to other drugs, medicaments and biological substances; Z88.6 Allergy status to analgesic agent; X58.XXXA Exposure to other specified factors, initial encounter; Y93.89 Activity, other specified; Y92.89 Other specified places as the place of occurrence of the external cause; Y99.8 Other external cause status
CPT/HCPCS: 99283

== ENCOUNTER 2020-12-25 17:08 | Emergency (ER) | payer OTHER | END 2020-12-25 18:25 | disposition left against medical advice (07) | LOC: ED 17:08 | DX: M25.571 Pain in right ankle and joints of right foot (principal); Z53.21 Procedure and treatment not carried out due to patient leaving prior to being seen by health care provider ==